=== PATIENT | male | born 1955 | race African-American/Black ===

== ENCOUNTER 2020-08-25 01:52 | Inpatient (IN) | payer MEDICARE ==
[2020-08-25] VITALS (7 sets, daily range): BP systolic 139–186; BP diastolic 73–92
[~2020-08-25] VITALS: Ht 165.1 cm; Wt 70.3 kg
--- NOTE | 2020-08-25 03:10 | NUR ---
Patient arrived to room 254 via EMS from [facility]. He is somnolent and drowsy and unable to follow commands but BUE and BLE are strong and wnl during incontinence care, he is incontinent of bowel upon arrival. VSS as documented, unable to perform NIH scale d/t drowsiness s/t IVP 2mg ativan given at [facility]. Will continue to monitor, sinus rhythm to sinus tachycardia on telemetry, oxygen wnl on room air. COVID rapid and PCR swabs perfrormed per RN handoff and [facility] ER report. Dr. Velasquez consulted at [facility] per ER report, will call his office in am to confirm consult and update MD.
[2020-08-25] MEDS ORDERED: 0.9 % SODIUM CHLORIDE 10 ML DISP.SYRIN. IV PRN (05:00)
[2020-08-25] MEDS ORDERED: IV NORMAL SALINE 1000ML BAG 1,000 ML IV SCH (05:30)
--- NOTE | 2020-08-25 05:52 | NUR ---
18F Antoine catheter placed under sterile technique, 750cc clear yellow urine returned.
[2020-08-25] MEDS ORDERED: ACETAMINOPHEN 325 MG TABLET. PO PRN (07:15)
[2020-08-25] MEDS: ASPIRIN ENTERIC COATED 325 MG TABLET.DR. PO SCH (08:00)
--- NOTE | 2020-08-25 09:14 | PDOC2 ---
NEUROLOGY CONSULT Date of Service DOS: DATE: 08/25/20 TIME: 09:13 Reason for Consult Reason for Consult: Stroke Referring Physician Referring Physician: Dr. Jones Source Source: Caregiver (brother), Chart review History of Present Illness History of Present Illness The patient is a 65-year-old right-handed male who had altered mental status. Sister spoke to the patient at 2 AM yesterday and he was fine, then the brother went to check on him at 5 PM yesterday and he was confused. Patient told the brother that he had fallen. He kept repeating himself. I spoke to Ms. Contreras in [place]'s ED and we agreed that he was not a candidate for alteplase. I recommended a CT angiogram, but he only had this of the head, not the neck. He did receive some Ativan just before transfer as he was getting somewhat agitated. According to the brother, there is no prior history of stroke, seizure, or head injury. Seizure does appear in his chart history Review of Systems: Review of Systems: Constitutional: Denies fever or chills Eyes: Denies change in visual acuity HENT: Denies nasal congestion or sore throat Respiratory: Denies cough or shortness of breath Cardiovascular: Denies chest pain or edema GI: Denies abdominal pain, nausea, vomiting, bloody stools or diarrhea : Denies dysuria Musculoskeletal: Denies back pain or joint pain Integument: Denies rash Neurologic: Denies headache, focal weakness or sensory changes Endocrine: Denies polyuria or polydipsia Lymphatic: Denies swollen glands Psychiatric: Denies depression or anxiety (TIMI CONTRERAS APRN) Physical Exam: PE: Constitutional: Well developed, well nourished, no acute distress, non-toxic appearance. [] HENT: Normocephalic, atraumatic, bilateral external ears normal, oropharynx moist, no oral exudates, nose normal. [] Eyes: PERRLA, EOMI, conjunctiva normal, no discharge. [] Neck: Normal range of motion, no tenderness, supple, no stridor. [] Cardiovascular:Heart rate regular rhythm, no murmur [] Lungs & Thorax: Bilateral breath sounds clear to auscultation [] Abdomen: Bowel sounds normal, soft, no tenderness, no masses, no pulsatile masses. [] Skin: Warm, dry, no erythema, no rash. [] Back: No tenderness, no CVA tenderness. [] Extremities: No tenderness, no cyanosis, no clubbing, ROM intact, no edema. [] Neurologic: Alert and oriented X 1, normal motor function, normal sensory function, fixed gaze to right Psychologic: restless (TIMI CONTRERAS APRN) Current Patient Data: Labs: Laboratory Tests Test 08/24/20 18:33 Glucose (Fingerstick) 474 mg/dL (70-99) H Vital Signs: Vital Signs Date Time Temp Pulse Resp B/P (MAP) Pulse Ox O2 Delivery O2 Flow Rate FiO2 08/24/20 18:34 99 28 196/106 (136) 99 (ITMI CONTRERAS APRN) EKG: EKG: [] (TIMI CONTRERAS APRN) Radiology/Procedures: Radiology/Procedures: []STUDY: CT head without contrast INDICATION: Rightward gaze preference. Altered mental status. Code stroke. COMPARISON: None. TECHNIQUE: Axial CT imaging through the head without the use of intravenous contrast. Sagittal and coronal reformats were obtained. One or more of the following individualized dose reduction techniques were utilized for this examination: 1. Automated exposure control 2. Adjustment of the mA and/or kV according to patient size 3. Use of iterative reconstruction technique. FINDINGS: No acute intracranial hemorrhage. No definitive CT findings of an acute cortical infarction. Note is made of a rightward gaze preference. No localized mass effect or midline shift. No hydrocephalus. Intact calvarium. IMPRESSION: 1. No acute intracranial hemorrhage or CT evidence for an acute cortical infarction. 2. Nonspecific rightward gaze preference. * EXAM: Chest, single view. HISTORY: Altered mental status. COMPARISON: None. FINDINGS: A frontal view of the chest is obtained. There is no infiltrate, pleural effusion or pneumothorax. There is suspected bilateral infrahilar atelectasis. IMPRESSION: No acute pulmonary finding. Electronically signed by: Jillian Griffith MD (08/24/2020 6:58 PM) [facility] Study: CT cervical spine without contrast INDICATION: Code stroke. Possible fall. Altered mental status. COMPARISON: None. TECHNIQUE: Axial CT imaging of the cervical spine performed without intravenous contrast. Sagittal and coronal reformats were obtained. One or more of the following individualized dose reduction techniques were utilized for this examination: 1. Automated exposure control 2. Adjustment of the mA and/or kV according to patient size 3. Use of iterative reconstruction technique. 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 Chronic anterior angulation of the dens. Widened atlantodental interval but unlikely traumatic and instead related to the craniocervical anatomy. No acute fracture is identified or traumatic malalignment. Multilevel discogenic arthrosis, uncovertebral joint hypertrophy and facet degeneration. Multilevel osseous neural foraminal encroachment ranging from mild to severe. Central canal stenosis favored greatest at C3-C4 the extent of which is not fully characterize. No soft tissue sequela of trauma seen throughout the neck. Retropharyngeal course of both internal carotid arteries. IMPRESSION: 1. No acute fracture is identified throughout the cervical spine. 2. Multilevel degenerative changes osseous neural foraminal encroachment at all cervical levels ranging from mild to severe. 3. Variant anatomy with atlantooccipital assimilation, a hypoplastic clivus and basilar invagination. Electronically signed by: VICK CHAWLA MD (08/24/2020 7:10 PM) [facility] (TIMI CONTRERAS APRN) Radiology/Procedures: [address] [address] IMAGING REPORT Signed PATIENT: ANUJ CATHERINE ACCOUNT: [id number] : 1955 LOCATION: ER AGE: 65 SEX: M EXAM STATUS: REG ER ORD. PHYSICIAN: EMERGENCY,DEPARTMENT REASON: GAZE TO RIGHT, CODE STROKE, AMS PROCEDURE: CT CODE STROKE HEAD WO STUDY: CT head without contrast INDICATION: Rightward gaze preference. Altered mental status. Code stroke. COMPARISON: None. TECHNIQUE: Axial CT imaging through the head without the use of intravenous contrast. Sagittal and coronal reformats were obtained. One or more of the following individualized dose reduction techniques were utilized for this examination: 1. Automated exposure control 2. Adjustment of the mA and/or kV according to patient size 3. Use of iterative reconstruction technique. FINDINGS: No acute intracranial hemorrhage. No definitive CT findings of an acute cortical infarction. Note is made of a rightward gaze preference. No localized mass effect or midline shift. No hydrocephalus. Intact calvarium. IMPRESSION: 1. No acute intracranial hemorrhage or CT evidence for an acute cortical infarction. 2. Nonspecific rightward gaze preference. FOR INTERNAL CODING PURPOSES Critical result: Findings discussed with the care team on 08/24/2020 at 6:58 PM. RESULT CODE: (C) Electronically signed by: VICK CHAWLA MD (08/24/2020 7:00 PM) [facility] DICTATED AND SIGNED BY: VICK CHAWLA MD DATE: 08/24/201853 CC: EMERGENCY,DEPARTMENT; PCP,NO ~MTH0 [address] [address] IMAGING REPORT Signed PATIENT: ANUJ CATHERINE ACCOUNT: [id number] : 1955 LOCATION: ER AGE: 65 SEX: M EXAM STATUS: REG ER ORD. PHYSICIAN: TIMI CONTRERAS APRN REASON: AMS PROCEDURE: CHEST AP ONLY EXAM: Chest, single view. HISTORY: Altered mental status. COMPARISON: None. FINDINGS: A frontal view of the chest is obtained. There is no infiltrate, pleural effusion or pneumothorax. There is suspected bilateral infrahilar atelectasis. IMPRESSION: No acute pulmonary finding. Electronically signed by: Jillian Griffith MD (08/24/2020 6:58 PM) [facility] DICTATED AND SIGNED BY: JILLIAN GRIFFITH MD DATE: 08/24/20 [id number] CC: EMERGENCY,DEPARTMENT; TIMI CONTRERAS APRN; PCP,NO ~MTH0 [address] [place] [address] IMAGING REPORT Signed PATIENT: ANUJ CATHERINE ACCOUNT: [id number] : 1955 LOCATION: ER AGE: 65 SEX: M EXAM STATUS: REG ER ORD. PHYSICIAN: TIMI CONTRERAS APRN REASON: AMS,Right side deficit. Neurologist requested PROCEDURE: CT ANGIOGRAPHY HEAD EXAM: CTA HEAD DATE: 08/24/2020 9:00 PM INDICATION: AMS,Right side deficit. TECHNIQUE: CTA angiogram was obtained after IV bolus administration of 60 cc of Omnipaque 300. Multiplanar reconstruction images to include MIP and 3-D reconstruction images are submitted. One or more of the following dose reduction techniques were utilized: Automated exposure control (AEC), Adjustment of mA and/or kV according to patient size, Use of iterative reconstruction technique such as ASiR, CT scan done according to ALARA and image gently/image wisely COMPARISON: None. FINDINGS: The visualized distal internal carotid arteries, anterior and middle cerebral arteries are patent and normal caliber. Distal left vertebral artery is not well visualized. The distal right vertebral artery, basilar artery, and posterior cerebral arteries are patent and normal caliber. No aneurysm or arteriovenous malformation is seen. IMPRESSION: 1. No intracranial large vessel occlusion. 2. Distal left vertebral artery is not well visualized which could be due to hyp oplasia, stenosis, or occlusion. This could be further characterized with CTA or MRA of the neck, as clinically warranted. Electronically signed by: Arden Rodriguez MD (08/24/2020 10:19 PM) [facility] DICTATED AND SIGNED BY: ARDEN RODRIGUEZ MD DATE: 08/24/202212 CC: EMERGENCY,DEPARTMENT; TIMI CONTRERAS APRN; PCP,NO ~MTH0 0 (LAURITA MORALES MD) Heart Score: Risk Factors: Risk Factors: DM, Current or recent (<one month) smoker, HTN, HLP, family history of CAD, obesity. Risk Scores: Score 0 - 3: 2.5% MACE over next 6 weeks - Discharge Home Score 4 - 6: 20.3% MACE over next 6 weeks - Admit for Clinical Observation Score 7 - 10: 72.7% MACE over next 6 weeks - Early Invasive Strategies (TIMI CONTRERAS APRN) HEART Score for Chest Pain: HEART Score for Chest Pain Response (Comments) Value History Moderately Suspicious 1 ECG Nonspecific Repolarizatio 1 Age > 65 2 Risk Factors 1 or 2 Risk Factors 1 Troponin < Normal Limit 0 Total 5 Course & Med Decision Making: Course & Med Decision Making Pertinent Labs and Imaging studies reviewed. (See chart for details) Waiting for CTA results for decision to transfer. Consulted neurology and spoke with Ron (TIMI CONTRERAS APRN) Course & Med Decision Making See CERTIFIED CODING SPECIALIST Chart for details. Pt. presentation, testing and tx. plan discussed with Dr. Jones. Transfer to [facility] and consult to Dr. Carroll. Plan possible MRI of Head and Neck. Impression: 1. Acute Mental Status Change 2. Acute Rt side Deficits 3. Anemia Hgb 11.6 4. Elevated CK 2, 385-rhabdomyolysis? 5. Elevated D-dimer 2,31 6. DM 492 - 347 7. Dehydration 8. Possible history of seizure activity 9. Elevated AST 337 and ALT 79 10. Hx of Alcohol abuse (LAURITA MORALES MD) Dragon Disclaimer: Dragon Disclaimer: This electronic medical record was generated, in whole or in part, using a voice recognition dictation system. (TIMI CONTRERAS APRN) Departure Departure: Referrals: PCP,NO (PCP) Td Disclaimer This chart was dictated in whole or in part using Voice Recognition software in a busy, high-work load, and often noisy Emergency Department environment. It may contain unintended and wholly unrecognized errors or omissions. (LAURITA MORALES MD) Attending Signature Attending Signature I have participated in the care of this patient and I have reviewed and agree with all pertinent clinical information above including history, exam, and recommendations. (LAURITA MORALES MD) Past Medical History Cardiovascular: HTN CENTRAL NERVOUS SYSTEM: Seizure (?) GI: GERD Heme/Onc: Anemia NOS, Cancer (colon) Musculoskeletal: Osteoarthritis Endocrine: Diabetes Past Surgical History Past Surgical History: Colon Resection Family History Family History: Cancer Social History Social History Single, retired, no alcohol, tobacco, drugs Current Medications Current Medications Current Medications Sodium Chloride (Normal Saline Flush) 3 ml PRN DAILY PRN IV AFTER MEDS AND BLOOD DRAWS; Start 08/25/20 at 05:00 Sodium Chloride 1,000 ml @ 100 mls/hr Q10H IV Last administered on 08/25/20at 05:26; Start 08/25/20 at 05:30 Acetaminophen (Tylenol) 650 mg PRN Q6HRS PRN PO MILD PAIN / TEMP > 100.3'F; Start 08/25/20 at 07:15 Aspirin (Ecotrin) 325 mg DAILYWBKFT PO ; Start 08/25/20 at 08:00 Aspirin (Aspirin Rectal Supp) 300 mg PRN DAILY PRN WV IF UNABLE TO TAKE PO; Start 08/25/20 at 07:15 Allergies Allergies: Coded Allergies: No Known Drug Allergies (Unverified , 08/25/20) ROS Review of System Negative for fever, chills, weight loss, shortness of breath, chest pain, indigestion, hematochezia, melena, and dysuria. Full 14-point review of systems is negative. Physical Exam Physical Examination General: Well-developed, well-nourished black male in no acute distress HEENT: Normocephalic andatraumatic. Temporal arteriespulsatile and nontender Neck: Supple without bruit, no meningismus Musculoskeletal: Stability:see neurologic. Gait exam:see neurologic. Tone:see neurologic.Strength:see neurologic. Neurological: Mental Status:orientation, memory, attention span/concentration, language, fund of knowledge: Tells me his name, mostly nonsense speech. Cranial Nerves:Pupils equal and reactive to light. He keeps his eyes squeezed shut, there is a right gaze preference. Facial sensation is normal. There is no facial asymmetry. Vestibulo-ocular reflex is intact. Palate elevates and tongue protrudes in midline. All other cranial related problems are negative except as mentioned before.Reflexes:2+ and symmetric with flexor plantar responses. Motor:Moves left side less than right. Coordination: and gait:Not cooperative. Sensory:Responds to pinprick in all 4 extremities Vitals VITALS Vital Signs Date Time Temp Pulse Resp B/P (MAP) Pulse Ox O2 Delivery O2 Flow Rate FiO2 08/25/20 03:57 Room Air 08/25/20 02:00 98.7 108 19 148/73 (98) 96 98.7 Labs Labs Laboratory Tests Test 08/25/20 03:15 08/25/20 07:52 SARS-CoV-2 Antigen (Rapid) Negative (NEGATIVE) Glucose (Fingerstick) 238 mg/dL (70-99) Laboratory Tests Test 08/25/20 03:15 08/25/20 07:52 SARS-CoV-2 Antigen (Rapid) Negative (NEGATIVE) Glucose (Fingerstick) 238 mg/dL (70-99) Images Images CT head without contrast FINDINGS: No acute intracranial hemorrhage. No definitive CT findings of an acute cortical infarction. Note is made of a rightward gaze preference. No localized mass effect or midline shift. No hydrocephalus. Intact calvarium. IMPRESSION: 1. No acute intracranial hemorrhage or CT evidence for an acute cortical infarction. 2. Nonspecific rightward gaze preference. CTA HEAD DATE: 08/24/2020 9:00 PM INDICATION: AMS,Right side deficit. TECHNIQUE: CTA angiogram was obtained after IV bolus administration of 60 cc of Omnipaque 300. Multiplanar reconstruction images to include MIP and 3-D reconstruction images are submitted. One or more of the following dose reduction techniques were utilized: Automated exposure control (AEC), Adjustment of mA and/or kV according to patient size, Use of iterative reconstruction technique such as ASiR, CT scan done according to ALARA and image gently/image wisely COMPARISON: None. FINDINGS: The visualized distal internal carotid arteries, anterior and middle cerebral arteries are patent and normal caliber. Distal left vertebral artery is not well visualized. The distal right vertebral artery, basilar artery, and posterior cerebral arteries are patent and normal caliber. No aneurysm or arteriovenous malformation is seen. IMPRESSION: 1. No intracranial large vessel occlusion. 2. Distal left vertebral artery is not well visualized which could be due to hypoplasia, stenosis, or occlusion. This could be further characterized with CTA or MRA of the neck, as clinically warranted. CT cervical spine without contrast INDICATION: Code stroke. Possible fall. Altered mental status. COMPARISON: None. TECHNIQUE: Axial CT imaging of the cervical spine performed without intravenous contrast. Sagittal and coronal reformats were obtained. One or more of the following individualized dose reduction techniques were utilized for this examination: 1. Automated exposure control 2. Adjustment of the mA and/or kV according to patient size 3. Use of iterative reconstruction technique. 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 Chronic anterior angulation of the dens. Widened atlantodental interval but unlikely traumatic and instead related to the craniocervical anatomy. No acute fracture is identified or traumatic malalignment. Multilevel discogenic arthrosis, uncovertebral joint hypertrophy and facet degeneration. Multilevel osseous neural foraminal encroachment ranging from mild to severe. Central canal stenosis favored greatest at C3-C4 the extent of which is not fully characterize. No soft tissue sequela of trauma seen throughout the neck. Retropharyngeal course of both internal carotid arteries. IMPRESSION: 1. No acute fracture is identified throughout the cervical spine. 2. Multilevel degenerative changes osseous neural foraminal encroachment at all cervical levels ranging from mild to severe. 3. Variant anatomy with atlantooccipital assimilation, a hypoplastic clivus and basilar invagination. Assessment/Plan Assessment/Plan Impression: Clinically a right hemispheric stroke with gaze preference, confusion, left-side d weakness, consider also metabolic issues Under investigation for Covid History of hypertension, diabetes, colon cancer Recommendations: MRI of the brain They only did CT angiogram of the head last night, I will check CT angiogram of the neck Echocardiogram Rehabilitation modalities Aspirin Also see stroke orders Fully discussed with the patient's brother. Thank you for letting me help with the patient's care. ALYSHA CARROLL MD Aug 25, 2020 09:14
[2020-08-25 09:37] LABS: BASO % 0 % (0-3); EOS % 0 % (0-3); HEMATOCRIT 29.9 % (39.0-53.0); LYMPH # 0.8 x10^3/uL (1.0-4.8); LYMPH % 11 % (24-48); MEAN CORPUSCULAR HEMOGLOBIN 25 pg (25-35); MEAN CORPUSCULAR HGB CONC 34 g/dL (31-37); MEAN CORPUSCULAR VOLUME 74 fL (79-100); MONO # 0.6 x10^3/uL (0.0-1.1); MONO % 8 % (0-9); NEUT # 6.3 x10^3/uL (1.8-7.7); NEUT % 81 % (31-73); PLATELET COUNT 196 x10^3/uL (140-400); RED BLOOD COUNT 4.03 x10^6/uL (4.30-5.70); RED CELL DISTRIBUTION WIDTH 13.8 % (11.5-14.5); WHITE BLOOD COUNT 7.8 x10^3/uL (4.0-11.0)
[2020-08-25 10:06] LABS: ALBUMIN 2.3 g/dL (3.4-5.0); ALBUMIN/GLOBULIN RATIO 0.8 (1.0-1.7); CALCIUM 8.7 mg/dL (8.5-10.1); CREATININE 1.1 mg/dL (0.7-1.3); GFR 81.3; POTASSIUM 3.4 mmol/L (3.5-5.1); TOTAL BILIRUBIN 0.4 mg/dL (0.2-1.0); TOTAL PROTEIN 5.2 g/dL (6.4-8.2)
[2020-08-25] MEDS: ASPIRIN RECTAL 300 MG SUPP. PR PRN (10:07)
[2020-08-25] MEDS ORDERED: IOHEXOL 350 MG/ML 100 ML VIAL. IV ONE (10:30)
[2020-08-25] MEDS: ACETAMINOPHEN 650 MG SUPP.RECT. PR PRN ×3 (10:42→19:56)
[2020-08-25] MEDS ORDERED: DEXTROSE 50% 25 GM / 50ML DISP.SYRIN. IV PRN ×2 (10:45→11:30)
[2020-08-25 10:46] LABS: CHOLESTEROL/HDL RATIO 2.6
[2020-08-25] MEDS: POTASSIUM CL 20MEQ IN D5W 1,000 ML IV SCH (12:07)
[2020-08-25] MEDS: INSULIN LISPRO 300 UNITS/3 ML VIAL. SQ SCH ×3 (12:08→22:09)
[2020-08-25] MEDS ORDERED: TAMS0.4C97 PO (12:12)
[2020-08-25] MEDS ORDERED: LISI10TA2 PO (12:12)
[2020-08-25] MEDS ORDERED: NPH,100V5 SQ (12:12)
[2020-08-25] MEDS ORDERED: FERR325T14 PO (12:12)
[2020-08-25] MEDS ORDERED: ATOR10TA PO (12:12)
[2020-08-25] MEDS ORDERED: OMEP40CA45 PO (12:12)
--- NOTE | 2020-08-25 12:22 | NUR ---
SS following for discharge planning. SS reviewed pt chart and discussed with pt RN. Pt is from home and is currently on room air. COVID19 negative. Neurology following. Possible stroke. Pt having fever. Self pay. SS will continue to follow for discharge planning.
--- NOTE | 2020-08-25 13:13 | RAD ---
Examination: CTA NECK History: Reason: CVA, had CTA only of head at [facility], abnormal vertebral / Spl. Instructions: omn i 350 75ml / Comparison/Correlation: CTA head with contrast 08/24/2020 TECHNIQUE: Computed tomographic angiography of the head and neck was performed following IV contrast according to arteriography protocol. Three-dimensional reconstructions were also performed. Maximum i ntensity projection images were provided. Findings: There is significant motion on multiple images especially of the head limiting assessment. Assessment of intracerebral arterial vasculature is severely limited and nondiagnostic due to motion present. Motion also limits evaluation of the internal carotid arteries at the upper cervical spine level and more superiorly. Note is made of significantly medial course of both of the common carotid arteries a nd internal carotid arteries. The vertebral arteries arise from the subclavian arteries bilaterally. Left vertebral artery is very diminutive in size. Right vertebral artery appears to be patent in its proximal visualized aspect. Mo re distally, motion limits evaluation. Assessment of the patency of the left vertebral artery is nond iagnostic due to its diminutive size and motion present. Contrast is seen within the vertebral arteri es. Aortic arch vessels are unremarkable at the origins with no significant stenoses seen. Mild C3-4 disc space narrowing with concentric disc bulge noted. Degenerative disc space narrowing of the lower cervical spine also seen. Patient is edentulous Impression: Significantly limited exam due to motion especially at the level of the head and upper cervical spine . No sylvian stenosis is identified involving the carotid arteries. No definite stenosis involving lo wer cervical portions of the internal carotid arteries. No significant plaque seen. Consider repeat e xam when able if clinical concern persists. TECHNIQUE: Computed tomographic angiography of the head and neck was performed following IV contrast according to arteriography protocol. Three-dimensional reconstructions were also performed. Maximum i ntensity projection images were provided. PQRS Compliance Statement - Stenosis calculations for CT, MR and conventional angiography are based u lianna measurement of the distal ICA diameter in accordance with the NASCET methodology. Stenosis calcu lations for carotid ultrasound studies are derived from validated velocity criteria which are known t o correlate with the NASCET methodology. Electronically signed by: Jass Polanco MD (08/25/2020 1:11 PM) [id number]
--- NOTE | 2020-08-25 13:57 | HP ---
ADMIT DATE: 08/25/2020 HISTORY OF PRESENT ILLNESS: The patient is a 65-year-old -[place] male patient who apparently was brought to the Emergency Room of [facility] with altered mental status. His sister spoke to him at 2:00 p.m. and he appeared fine. His brother went to check on him at 5:00 p.m. on the day of arrival to the Emergency Room and he was acting confused. The patient told his brother when he arrived that he fell and hit his head and that he had not eaten or had anything to drink. When he arrived, he was repeating himself asking the staff at the Emergency Room to call his doctor and get his medication. He was extensively investigated. On arrival, the patient was alert and oriented x 1 with normal motor and normal sensory function. He has a fixed gaze to the right. He has had a CT scan of the head without contrast which basically showed no acute intracranial hemorrhage, no definite CT findings of an acute cortical infarction. A note was made of a rightward gaze preference; however, there is no localized mass effect or midline shift, no hydrocephalus. His chest x-ray showed no acute pulmonary finding. CT scan of the cervical spine without contrast showed no acute fracture identified throughout the cervical spine. He has multilevel degenerative changes with osseous changes, osseous neural foramina, encroachment at all cervical levels ranging from mild to severe and variant anatomy with atlanto-occipital assimilation, hypoplastic clivus and basilar invagination. Given that he had altered mental status, the patient was transferred to [facility] for further evaluation with an MRI and to consult the neurologist. PAST MEDICAL HISTORY: The patient unfortunately is confused and does not give any useful information. His past medical history is significant for: 1. Type 2 diabetes. 2. Gastroesophageal reflux disease. 3. Hypertension. 4. Anemia. 5. Osteoarthritis. 6. Seizure disorder. 7. Has had colon cancer. PAST SURGICAL HISTORY: Significant for surgery for colon cancer. ALLERGIES: He has no known drug allergies. MEDICATIONS: Unfortunately, the patient does not give any useful information and I will contact his family to get the medication list that he is on. FAMILY HISTORY: Unobtainable. SOCIAL HISTORY: Unobtainable. REVIEW OF SYSTEMS: Unobtainable. PHYSICAL EXAMINATION: GENERAL: He apparently was alert, oriented x 1 with normal motor function, normal sensory function with a fixed gaze to the right. On examining him, there was no pallor, jaundice, cyanosis or thyromegaly. No jugular venous distention. No lower limb edema. VITAL SIGNS: His heart rate was 99, blood pressure was 196/106, his temperature was 97.4, respiratory rate was 28 and oxygen saturation was 99%. HEAD, EYES, EARS, NOSE AND THROAT: Showed normocephalic, atraumatic. NECK: Supple. HEART: Showed normal first and second heart sounds. No gallop, rub or murmur. CHEST: Clear to auscultation. No crepitation or rhonchi. ABDOMEN: Distended, soft, nontender. No guarding or rigidity. No organomegaly. All hernial orifice intact. Bowel sounds normal. NEUROLOGIC: He was apparently unresponsive. He has multiple other findings, right sided deficit, anemia, elevated CK or possible rhabdomyolysis, elevated D-dimer, dehydration, possible history of seizure activity, history of alcohol abuse and was transferred to [facility] to consult the neurologist and arrange for an MRI. His lab work there showed that his white cell count was 9100, hemoglobin 11.6, hematocrit 36, MCV 76 and platelet count ____. His chemistry showed a serum sodium 140, potassium 4, chloride 103, bicarbonate 27, anion gap of 10, BUN 27, creatinine 1.5, estimated GFR was 56 mL per minute. His glucose was ____. Lactic acid was 2.5. His calcium was 9.9. His CK was 2389 and his beta natriuretic peptide was only 384. His prothrombin time was 9.4, INR of 0.9, aPTT was 21 and D-dimer was 2.31. Urinalysis was essentially unremarkable and urine drug screen was negative. His CT scan of the cervical spine showed no acute fracture identified throughout the cervical spine. He had multilevel degenerative changes, osseous and neural foraminal encroachment at all cervical levels ranging from mild to severe. He has variant anatomy with atlanto-occipital assimilation, hypoplastic clivus and basilar invagination. CT scan of the head showed no acute intracranial hemorrhage or CT evidence of an acute cortical infarction, nonspecific rightward gaze preference. His chest x-ray was unremarkable and showed no acute pulmonary finding. CT angio of the head showed no intracranial large vessel occlusion. Distal left vertebral artery is not well visualized which could be due to hypoplasia, stenosis or occlusion. This could be further characterized with CTA or MRA of the neck as clinically warranted. ASSESSMENT AND PLAN: The patient was transferred to [facility]. He was kept n.p.o., started on IV fluids and given aspirin per rectum. We did consult Dr. Pardo for evaluation and management. CRISTINA REYNA MD DR: YUN/yaima JOB#: [id number] / [id number]
--- NOTE | 2020-08-25 15:00 | RAD ---
MRI of the brain without contrast 08/25/2020 Clinical History: Right-sided deficit. CVA. Technique: Unenhanced T1-weighted sagittal and axial, T2-weighted axial and coronal and FLAIR, gradie nt echo and diffusion-weighted axial images of the brain were obtained. Findings: Comparison is made to the patient's CT scan of the head dated 08/24/2020. Images from the study are degraded by patient motion. There is generalized parenchymal atrophy. Patchy and several small focal areas of increased signal in tensity are seen within the periventricular and subcortical white matter of both cerebral hemispheres on the FLAIR and T2-weighted images consistent with areas of mild small vessel ischemic disease. No acute parenchymal abnormality is seen. No extra-axial fluid collection is seen. There is no MRI ev idence of acute ischemia/infarction. Mild mucosal thickening in seen scattered throughout the paranasal sinuses. There are small bilateral mastoid effusions. Normal flow voids are seen within the major vascular structures surrounding the b rain parenchyma. Impression: No acute parenchymal abnormality is seen. Electronically signed by: Sean Alvarez MD (08/25/2020 2:58 PM) [id number]
--- NOTE | 2020-08-25 15:43 | RAD ---
EXAM: Chest, single view. HISTORY: Fever. Aspiration pneumonitis. COMPARISON: None. FINDINGS: A frontal view of the chest is obtained. There is no infiltrate, pleural effusion or pneumo thorax. The heart is normal in size for portable technique. There is a prominent right paratracheal s tripe due to tortuous arch great vessels and prominent right paratracheal lymph nodes demonstrated on the CT angiogram of the neck performed on the same date. IMPRESSION: No acute pulmonary finding. Electronically signed by: Jillian See MD (08/25/2020 3:40 PM) [facility]
[2020-08-26] MEDS: POTASSIUM CL 20MEQ IN D5W 1,000 ML IV SCH ×2 (01:38→15:43)
[2020-08-26 03:00] VITALS: BP 187/92
[2020-08-26] MEDS: INSULIN LISPRO 300 UNITS/3 ML VIAL. SQ SCH (06:46)
[2020-08-26 07:00] VITALS: BP 164/75
[2020-08-26 07:42] LABS: HEMATOCRIT 33.7 % (39.0-53.0); RED BLOOD COUNT 4.42 x10^6/uL (4.30-5.70); RED CELL DISTRIBUTION WIDTH 14.6 % (11.5-14.5); WHITE BLOOD COUNT 7.5 x10^3/uL (4.0-11.0)
[2020-08-26] MEDS: ASPIRIN ENTERIC COATED 325 MG TABLET.DR. PO SCH (08:00)
[2020-08-26 08:01] LABS: ALBUMIN 2.1 g/dL (3.4-5.0); ALBUMIN/GLOBULIN RATIO 0.7 (1.0-1.7); CALCIUM 8.7 mg/dL (8.5-10.1); CREATININE 1.3 mg/dL (0.7-1.3); POTASSIUM 3.7 mmol/L (3.5-5.1); TOTAL BILIRUBIN 0.6 mg/dL (0.2-1.0); TOTAL PROTEIN 5.3 g/dL (6.4-8.2)
[2020-08-26] MEDS ORDERED: DEXTROSE 50% 25 GM / 50ML DISP.SYRIN. IV PRN (09:15)
[2020-08-26 11:00] VITALS: BP 187/87
[2020-08-26] MEDS: ASPIRIN RECTAL 300 MG SUPP. PR PRN (11:46)
--- NOTE | 2020-08-26 13:43 | PDOC ---
PROGRESS NOTES Date of Service DATE: 08/26/20 TIME: 13:40 Assessment Clinically a right hemispheric stroke with gaze preference, confusion, left- sided weakness, but all this has resolved, MRI is negative, then he developed a high fever. This this may all of been metabolic Under investigation for Covid History of hypertension, diabetes, colon cancer Plan Awaiting echocardiogram Awaits speech therapy evaluation before we can feed Rehabilitation modalities Aspirin Treat medical diseases including infection, Covid testing pending Subjective Wants to eat Objective Vital Signs Date Time Temp Pulse Resp B/P (MAP) Pulse Ox O2 Delivery O2 Flow Rate FiO2 08/26/20 11:00 99.1 86 20 187/87 (120) 99 Room Air 99.1 Intake and Output 08/26/20 07:00 Intake Total 0 ml Output Total 1400 ml Balance -1400 ml Intake Oral 0 ml Output Urine Total 1400 ml PHYSICAL EXAM Alert. Oriented to place and person. PERRL. EOMI. CN: no focal findings. Muscle tone: normal. Muscle strength: 4/5 DTR: 2+ Plantar reflex: Flexor Gait: not examined in bed. Sensory exam: no abnormal findings. Review of Relevant I have reviewed the following items danielle (where applicable) has been applied. Labs Laboratory Tests Test 08/25/20 03:15 08/25/20 07:52 08/25/20 09:15 08/25/20 11:07 SARS-CoV-2 Antigen (Rapid) Negative (NEGATIVE) Glucose (Fingerstick) 238 mg/dL (70-99) 263 mg/dL (70-99) White Blood Count 7.8 x10^3/uL (4.0-11.0) Red Blood Count 4.03 x10^6/uL (4.30-5.70) Hemoglobin 10.0 g/dL (13.0-17.5) Hematocrit 29.9 % (39.0-53.0) Mean Corpuscular Volume 74 fL (79-100) Mean Corpuscular Hemoglobin 25 pg (25-35) Mean Corpuscular Hemoglobin Concent 34 g/dL (31-37) Red Cell Distribution Width 13.8 % (11.5-14.5) Platelet Count 196 x10^3/uL (140-400) Neutrophils (%) (Auto) 81 % (31-73) Lymphocytes (%) (Auto) 11 % (24-48) Monocytes (%) (Auto) 8 % (0-9) Eosinophils (%) (Auto) 0 % (0-3) Basophils (%) (Auto) 0 % (0-3) Neutrophils # (Auto) 6.3 x10^3/uL (1.8-7.7) Lymphocytes # (Auto) 0.8 x10^3/uL (1.0-4.8) Monocytes # (Auto) 0.6 x10^3/uL (0.0-1.1) Eosinophils # (Auto) 0.0 x10^3/uL (0.0-0.7) Basophils # (Auto) 0.0 x10^3/uL (0.0-0.2) Sodium Level 148 mmol/L (136-145) Potassium Level 3.4 mmol/L (3.5-5.1) Chloride Level 110 mmol/L (98-107) Carbon Dioxide Level 27 mmol/L (21-32) Anion Gap 11 (6-14) Blood Urea Nitrogen 22 mg/dL (8-26) Creatinine 1.1 mg/dL (0.7-1.3) Estimated GFR (Cockcroft-Gault) 81.3 BUN/Creatinine Ratio 20 (6-20) Glucose Level 231 mg/dL (70-99) Calcium Level 8.7 mg/dL (8.5-10.1) Total Bilirubin 0.4 mg/dL (0.2-1.0) Aspartate Amino Transf (AST/SGOT) 54 U/L (15-37) Alanine Aminotransferase (ALT/SGPT) 43 U/L (16-63) Alkaline Phosphatase 109 U/L (46-116) Ammonia 17 mcmol/L (11-34) Creatine Kinase 1796 U/L (39-308) Total Protein 5.2 g/dL (6.4-8.2) Albumin 2.3 g/dL (3.4-5.0) Albumin/Globulin Ratio 0.8 (1.0-1.7) Triglycerides Level 87 mg/dL (0-150) Cholesterol Level 126 mg/dL (0-200) LDL Cholesterol, Calculated 61 mg/dL (0-100) VLDL Cholesterol, Calculated 17 mg/dL (0-40) Non-HDL Cholesterol Calculated 78 mg/dL (0-129) HDL Cholesterol 48 mg/dL (40-60) Cholesterol/HDL Ratio 2.6 Test 08/25/20 16:34 08/25/20 21:15 08/26/20 06:43 08/26/20 07:23 Glucose (Fingerstick) 111 mg/dL (70-99) 225 mg/dL (70-99) 326 mg/dL (70-99) White Blood Count 7.5 x10^3/uL (4.0-11.0) Red Blood Count 4.42 x10^6/uL (4.30-5.70) Hemoglobin 11.0 g/dL (13.0-17.5) Hematocrit 33.7 % (39.0-53.0) Mean Corpuscular Volume 76 fL (79-100) Mean Corpuscular Hemoglobin 25 pg (25-35) Mean Corpuscular Hemoglobin Concent 33 g/dL (31-37) Red Cell Distribution Width 14.6 % (11.5-14.5) Platelet Count 185 x10^3/uL (140-400) Sodium Level 145 mmol/L (136-145) Potassium Level 3.7 mmol/L (3.5-5.1) Chloride Level 107 mmol/L (98-107) Carbon Dioxide Level 23 mmol/L (21-32) Anion Gap 15 (6-14) Blood Urea Nitrogen 25 mg/dL (8-26) Creatinine 1.3 mg/dL (0.7-1.3) Estimated GFR (Cockcroft-Gault) 67.0 BUN/Creatinine Ratio 19 (6-20) Glucose Level 309 mg/dL (70-99) Calcium Level 8.7 mg/dL (8.5-10.1) Total Bilirubin 0.6 mg/dL (0.2-1.0) Aspartate Amino Transf (AST/SGOT) 44 U/L (15-37) Alanine Aminotransferase (ALT/SGPT) 44 U/L (16-63) Alkaline Phosphatase 104 U/L (46-116) Total Protein 5.3 g/dL (6.4-8.2) Albumin 2.1 g/dL (3.4-5.0) Albumin/Globulin Ratio 0.7 (1.0-1.7) Laboratory Tests Test 08/25/20 16:34 08/25/20 21:15 08/26/20 06:43 08/26/20 07:23 Glucose (Fingerstick) 111 mg/dL (70-99) 225 mg/dL (70-99) 326 mg/dL (70-99) White Blood Count 7.5 x10^3/uL (4.0-11.0) Red Blood Count 4.42 x10^6/uL (4.30-5.70) Hemoglobin 11.0 g/dL (13.0-17.5) Hematocrit 33.7 % (39.0-53.0) Mean Corpuscular Volume 76 fL (79-100) Mean Corpuscular Hemoglobin 25 pg (25-35) Mean Corpuscular Hemoglobin Concent 33 g/dL (31-37) Red Cell Distribution Width 14.6 % (11.5-14.5) Platelet Count 185 x10^3/uL (140-400) Sodium Level 145 mmol/L (136-145) Potassium Level 3.7 mmol/L (3.5-5.1) Chloride Level 107 mmol/L (98-107) Carbon Dioxide Level 23 mmol/L (21-32) Anion Gap 15 (6-14) Blood Urea Nitrogen 25 mg/dL (8-26) Creatinine 1.3 mg/dL (0.7-1.3) Estimated GFR (Cockcroft-Gault) 67.0 BUN/Creatinine Ratio 19 (6-20) Glucose Level 309 mg/dL (70-99) Calcium Level 8.7 mg/dL (8.5-10.1) Total Bilirubin 0.6 mg/dL (0.2-1.0) Aspartate Amino Transf (AST/SGOT) 44 U/L (15-37) Alanine Aminotransferase (ALT/SGPT) 44 U/L (16-63) Alkaline Phosphatase 104 U/L (46-116) Total Protein 5.3 g/dL (6.4-8.2) Albumin 2.1 g/dL (3.4-5.0) Albumin/Globulin Ratio 0.7 (1.0-1.7) Medications Current Medications Sodium Chloride (Normal Saline Flush) 3 ml PRN DAILY PRN IV AFTER MEDS AND BLOOD DRAWS; Start 08/25/20 at 05:00 Sodium Chloride 1,000 ml @ 100 mls/hr Q10H IV Last administered on 08/25/20at 05:26; Start 08/25/20 at 05:30; Stop 08/25/20 at 11:23; Status DC Acetaminophen (Tylenol) 650 mg PRN Q6HRS PRN PO MILD PAIN / TEMP > 100.3'F; Start 08/25/20 at 07:15 Aspirin (Ecotrin) 325 mg DAILYWBKFT PO ; Start 08/25/20 at 08:00 Aspirin (Aspirin Rectal Supp) 300 mg PRN DAILY PRN [place] IF UNABLE TO TAKE PO Last administered on 08/26/20at 11:46; Start 08/25/20 at 07:15 Iohexol (Omnipaque 350 Mg/ml) 75 ml 1X ONCE IV Last administered on 08/25/20at 10:30; Start 08/25/20 at 10:30; Stop 08/25/20 at 10:34; Status DC Acetaminophen (Tylenol Supp) 650 mg PRN Q6HRS PRN [place] MILD PAIN / TEMP > 100.3'F Last administered on 08/25/20at 16:26; Start 08/25/20 at 10:30; Stop 08/25/20 at 19:48; Status DC Dextrose (Dextrose 50%-Water Syringe) 12.5 gm PRN Q15MIN PRN IV SEE COMMENTS; Start 08/25/20 at 10:45; Stop 08/25/20 at 11:26; Status DC Potassium Chloride/Dextrose 1,000 ml @ 75 mls/hr [id number] IV Last administered on 08/26/20at 01:38; Start 08/25/20 at 11:30 Insulin Human Lispro (HumaLOG) 0-7 UNITS Q6H SQ Last administered on 08/26/20at 06:46; Start 08/25/20 at 11:30; Stop 08/26/20 at 09:18; Status DC Dextrose (Dextrose 50%-Water Syringe) 12.5 gm PRN Q15MIN PRN IV SEE COMMENTS; Start 08/25/20 at 11:30 Acetaminophen (Tylenol Supp) 650 mg PRN Q4HRS PRN [place] MILD PAIN / TEMP > 100.3'F Last administered on 08/25/20at 19:56; Start 08/25/20 at 20:00 Insulin Human Lispro (HumaLOG) 0-9 UNITS Q6H PRN SQ hyperglycemia; Start 08/26/20 at 09:15 Dextrose (Dextrose 50%-Water Syringe) 12.5 gm PRN Q15MIN PRN IV SEE COMMENTS; Start 08/26/20 at 09:15 Active Scripts Active Reported Lipitor (Atorvastatin Calcium) 10 Mg Tablet 1 Tab PO DAILY Flomax (Tamsulosin Hcl) 0.4 Mg Cap.er.24h 1 Cap PO DAILY Ferrous Sulfate 325 Mg Tablet 1 Tab PO BID Omeprazole 40 Mg Capsule.dr 1 Cap PO DAILY Novolin N (Nph, Human Insulin Isophane) 100 Unit/1 Ml Vial 20 Unit SQ BIDACBD Lisinopril 10 Mg Tablet 1 Tab PO DAILY Vitals/I & O Vital Sign - Last 24 Hours 08/25/20 08/25/20 08/25/20 08/25/20 15:00 19:00 20:00 23:00 Temp 101.7 101.7 99.6 101.7 101.7 99.6 Pulse 114 109 101 Resp 26 23 22 B/P (MAP) 139/91 (107) 186/92 (123) 172/81 (111) Pulse Ox 94 96 96 O2 Delivery Room Air Room Air Room Air Room Air 08/26/20 08/26/20 08/26/20 08/26/20 03:00 07:00 08:00 11:00 Temp 98.8 98.4 99.1 98.8 98.4 99.1 Pulse 101 100 86 Resp 22 20 20 B/P (MAP) 187/92 (123) 164/75 (104) 187/87 (120) Pulse Ox 93 98 99 O2 Delivery Room Air Room Air Room Air Room Air Intake and Output 08/25/20 08/25/20 08/26/20 15:00 23:00 07:00 Intake Total 0 ml 0 ml 0 ml Output Total 950 ml 450 ml Balance 0 ml -950 ml -450 ml Images MRI of the brain without contrast 08/25/2020 Clinical History: Right-sided deficit. CVA. Technique: Unenhanced T1-weighted sagittal and axial, T2-weighted axial and coronal and FLAIR, gradient echo and diffusion-weighted axial images of the brain were obtained. Findings: Comparison is made to the patient's CT scan of the head dated 08/24/2020. Images from the study are degraded by patient motion. There is generalized parenchymal atrophy. Patchy and several small focal areas of increased signal intensity are seen within the periventricular and subcortical white matter of both cerebral hemispheres on the FLAIR and T2- weighted images consistent with areas of mild small vessel ischemic disease. No acute parenchymal abnormality is seen. No extra-axial fluid collection is seen. There is no MRI evidence of acute ischemia/infarction. Mild mucosal thickening in seen scattered throughout the paranasal sinuses. There are small bilateral mastoid effusions. Normal flow voids are seen within the major vascular structures surrounding the brain parenchyma. Impression: No acute parenchymal abnormality is seen. CTA NECK History: Reason: CVA, had CTA only of head at [facility], abnormal vertebral / Spl. Instructions: omni 350 75ml / Comparison/Correlation: CTA head with contrast 08/24/2020 TECHNIQUE: Computed tomographic angiography of the head and neck was performed following IV contrast according to arteriography protocol. Three-dimensional reconstructions were also performed. Maximum intensity projection images were provided. Findings: There is significant motion on multiple images especially of the head limiting assessment. Assessment of intracerebral arterial vasculature is severely limited and nondiagnostic due to motion present. Motion also limits evaluation of the internal carotid arteries at the upper cervical spine level and more superiorly. Note is made of significantly medial course of both of the common carotid arteries and internal carotid arteries. The vertebral arteries arise from the subclavian arteries bilaterally. Left vertebral artery is very diminutive in size. Right vertebral artery appears to be patent in its proximal visualized aspect. More distally, motion limits evaluation. Assessment of the patency of the left vertebral artery is nondiagnostic due to its diminutive size and motion present. Contrast is seen within the vertebral arteries. Aortic arch vessels are unremarkable at the origins with no significant stenoses seen. Mild C3-4 disc space narrowing with concentric disc bulge noted. Degenerative disc space narrowing of the lower cervical spine also seen. Patient is edentulous Impression: Significantly limited exam due to motion especially at the level of the head and upper cervical spine. No sylvian stenosis is identified involving the carotid arteries. No definite stenosis involving lower cervical portions of the internal carotid arteries. No significant plaque seen. Consider repeat exam when able if clinical concern persists. Justicifation of Admission Dx: Justifications for Admission: Justification of Admission Dx: N/A ALYSHA CARROLL MD Aug 26, 2020 13:43
--- NOTE | 2020-08-26 14:01 | PN ---
DATE: 08/26/2020 SUBJECTIVE: The patient is resting, slightly propped up in bed, in no apparent distress. He continued to be encephalopathic and unresponsive. He does open his eyes, does not track or follow command. He apparently has had an MRI of his brain, which basically showed that the patient has generalized parenchymal atrophy, patchy and several small focal areas of increased signal intensity are seen within the periventricular and subcortical white matter of both cerebral hemispheres, consistent area of mild small vessel ischemic disease, no acute parenchymal abnormality seen. No extraaxial fluid collection is seen. There is no MRI evidence of acute ischemia or infarction. There is mild mucosal thickening seen scattered throughout the paranasal sinuses, there are small bilateral mastoid effusion. Normal flow voids are seen within the major vascular structures surrounding the brain parenchyma. He did have CT angio of the neck, which ____ the impression, the significantly limited exam due to motion, especially at the level of the head and upper cervical spine. No Sylvian stenosis identified involving the carotid arteries. No definite stenosis involving the lower cervical portion of the internal carotid arteries. No significant plaque seen. Consider repeat exam when a ____ clinical concern persists. His chest x-ray basically showed no acute pulmonary finding. PHYSICAL EXAMINATION: GENERAL: When I examined him this morning, he was pale, no jaundice, cyanosis or thyromegaly. No jugular venous distention, no limb edema. VITAL SIGNS: His heart rate was 100, blood pressure was 164/75, temperature was 98.4, respiratory rate was 20, and oxygen saturation was 98% on room air. HEAD, EYES, EARS, NOSE AND THROAT: Normocephalic, atraumatic. NECK: Supple. CARDIAC: Normal first and second heart sounds. No gallop or murmur. CHEST: Clear to auscultation. No crepitation or rhonchi. ABDOMEN: Distended, soft, nontender. NEUROLOGIC: The patient continued to be encephalopathic. He does open his eyes and drifts back to sleep. He does not respond verbally. In fact, does not even move his extremities even to painful stimuli. His intake was incompletely recorded, output was 750. LABORATORY DATA: His lab work this morning showed that his white cell count is down to 7500, hemoglobin 11, hematocrit 33, MCV 76 and platelet count 185,000. His chemistry showed a serum sodium of 145, potassium 3.7, chloride 107, bicarbonate 23, anion gap of 15, BUN 25, creatinine 1.3, estimated GFR was 67 mL per minute. His glucose was 309, calcium was 8.7. Total bilirubin, ALT, alkaline phosphatase were normal. AST slightly elevated. Total protein was 5.3, albumin was 2.1. ASSESSMENT: 1. Altered mental status. The patient continued to be encephalopathic, although so far, all his CT scan and MRI and CT angio of the head and neck are all unrevealing. 2. His hypernatremia and hypokalemia has resolved. Other medical problems include: A. Type 2 diabetes mellitus with blood sugars that seems to be reasonably controlled. B. Gastroesophageal reflux disease. C. Hypertension. D. Microcytic hypochromic anemia. E. Osteoarthritis. F. Seizure disorder. G. The patient has had colon cancer. PLAN: To continue with IV fluid, continue with SCDs for DVT prophylaxis. Continue to monitor his blood sugar and adjust insulin as needed and the patient is not really making much improvement and we have to discus with the family the need for probably a gastrostomy tube placement and [facility]. CRISTINA REYNA MD DR: YUN/yaima JOB#: [id number] / [id number]
[2020-08-26 15:00] VITALS: BP 175/80
[2020-08-26] MEDS: INSULIN LISPRO 300 UNITS/3 ML VIAL. SQ PRN ×2 (17:18→23:21)
[2020-08-26 19:45] VITALS: BP 168/82
[2020-08-26] MEDS: ACETAMINOPHEN 650 MG SUPP.RECT. PR PRN (19:46)
[2020-08-26 23:19] VITALS: BP 168/76
[2020-08-27] MEDS: ACETAMINOPHEN 650 MG SUPP.RECT. PR PRN (03:10)
[2020-08-27 03:17] VITALS: BP 171/76
[2020-08-27] MEDS: POTASSIUM CL 20MEQ IN D5W 1,000 ML IV SCH ×2 (04:51→18:25)
[2020-08-27 07:00] VITALS: BP 177/86
[2020-08-27 07:13] LABS: HEMATOCRIT 30.9 % (39.0-53.0); HEMOGLOBIN 10.1 g/dL (13.0-17.5); RED BLOOD COUNT 4.03 x10^6/uL (4.30-5.70); RED CELL DISTRIBUTION WIDTH 14.3 % (11.5-14.5); WHITE BLOOD COUNT 6.2 x10^3/uL (4.0-11.0)
[2020-08-27 07:32] LABS: ALBUMIN 1.8 g/dL (3.4-5.0); ALBUMIN/GLOBULIN RATIO 0.6 (1.0-1.7); CREATININE 1.6 mg/dL (0.7-1.3); GFR 52.8; POTASSIUM 4.1 mmol/L (3.5-5.1); TOTAL BILIRUBIN 0.5 mg/dL (0.2-1.0); TOTAL PROTEIN 4.8 g/dL (6.4-8.2)
--- NOTE | 2020-08-27 09:02 | PN ---
DATE: 08/27/2020 SUBJECTIVE: The patient is resting flat, comfortably in bed, in no apparent respiratory distress. He is awake, alert, complaining that he is hungry and thirsty. He is moving all his limbs without difficulty. PHYSICAL EXAMINATION: GENERAL: When I examined him, he looked well and was clearly in no apparent respiratory distress, slightly pale, but no jaundice, cyanosis or thyromegaly. No jugular venous distention. No lower limb edema. VITAL SIGNS: His heart rate was 87, blood pressure was 171/76, temperature was 99.6, respiratory rate was 17 and oxygen saturation was 99%. HEAD, EYES, EARS, NOSE AND THROAT: Showed normocephalic, atraumatic. NECK: Supple. HEART: Normal first and second heart sounds. No gallop, rub or murmur. CHEST: Clear to auscultation. No crepitation or rhonchi. ABDOMEN: Scaphoid, soft, nontender. NEUROLOGIC: He is definitely more awake, alert, responding appropriately. All his cranial nerves are intact. He moves extremities without difficulty, although he does have some weakness in his right side. His intake over the last 24 hours incompletely recorded, output was 1400. LABORATORY DATA: As of this morning, his white cell count was 6200, hemoglobin 10, hematocrit 30, MCV 77 and platelet count of 170,000. His chemistry showed a serum sodium of 143, potassium 4.1, chloride 107, bicarbonate 27, anion gap of 9, BUN 24, creatinine 1.6, estimated GFR was 53 mL per minute. His glucose 301, calcium was 8. Total bilirubin, AST, ALT, alkaline phosphatase were normal. Total protein was 4.8, albumin was 1.8. His coronavirus PCR was not detectable. His urine culture was negative. His blood cultures also negative. ASSESSMENT: 1. Altered mental status has dramatically improved. The patient is now awake, alert, oriented to time, place and person. He is complaining that he is hungry and thirsty. 2. Hypernatremia and hypokalemia has resolved. His serum sodium this morning was 143 and potassium was 4.1. 3. Other medical problems include: A. Type 2 diabetes mellitus with blood sugar that is suboptimally controlled. B. Gastroesophageal reflux disease. C. Hypertension. D. Microcytic hypochromic anemia. E. Osteoarthritis. F. Seizure disorder. G. The patient has had colon cancer. H. The patient's creatinine has risen from 1.1-1.3 and this morning at 1.6 for no reason. The patient is not on any nephrotoxic medication to the best of my knowledge. PLAN: My plan is to continue with IV fluid. We will ask the speech therapy to evaluate and I will arrange for him to change his catheter and scan his bladder and if his creatinine continued to rise, we will arrange for CT scan of the abdomen and pelvis and consult neonatologist. CRISTINA REYNA MD DR: YUN/yaima JOB#: [id number] / [id number]
[2020-08-27] MEDS: INSULIN LISPRO 300 UNITS/3 ML VIAL. SQ PRN ×2 (09:18→17:44)
[2020-08-27] MEDS: ASPIRIN ENTERIC COATED 325 MG TABLET.DR. PO SCH (09:34)
[2020-08-27 10:55] VITALS: BP 135/61
--- NOTE | 2020-08-27 14:51 | PDOC ---
PROGRESS NOTES Date of Service DATE: 08/27/20 TIME: 14:47 Assessment Clinically a right hemispheric stroke with gaze preference, confusion, left- sided weakness, but all this has resolved, MRI is negative, then he developed a high fever. This this may all of been metabolic Covid negative History of hypertension, diabetes, colon cancer Dr. Jones lists a diagnosis of prior seizure, patient denies Fever earlier in the admission Hypernatremia and hypokalemia, elevated creatinine, type 2 diabetes mellitus, gastroesophageal reflux disease, hypertension, microcytic hypochromic anemia, osteoarthritis, history of colon cancer. Speech has not seen yesterday or today, I went ahead and did my own bedside swallow and find no dysphagia Plan Awaiting echocardiogram Diabetic diet Rehabilitation modalities Aspirin Treat medical diseases including infection, Covid testing pending Home as soon as tomorrow Subjective Still hungry and thirsty Objective Vital Signs Date Time Temp Pulse Resp B/P (MAP) Pulse Ox O2 Delivery O2 Flow Rate FiO2 08/27/20 10:55 98.0 84 20 135/61 (85) 98 Room Air 98.0 Intake and Output 08/27/20 07:00 Intake Total 0 ml Output Total 1300 ml Balance -1300 ml Intake Oral 0 ml Output Urine Total 1300 ml # Bowel Movements 3 PHYSICAL EXAM Alert. Oriented to place and person. PERRL. EOMI. CN: no focal findings. Muscle tone: normal. Muscle strength: 4/5 DTR: 2+ Plantar reflex: Flexor Gait: not examined in bed. Sensory exam: no abnormal findings. No sign of aspiration for me on liquids Review of Relevant I have reviewed the following items danielle (where applicable) has been applied. Labs Laboratory Tests Test 08/25/20 16:34 08/25/20 21:15 08/26/20 06:43 08/26/20 07:23 Glucose (Fingerstick) 111 mg/dL (70-99) 225 mg/dL (70-99) 326 mg/dL (70-99) White Blood Count 7.5 x10^3/uL (4.0-11.0) Red Blood Count 4.42 x10^6/uL (4.30-5.70) Hemoglobin 11.0 g/dL (13.0-17.5) Hematocrit 33.7 % (39.0-53.0) Mean Corpuscular Volume 76 fL (79-100) Mean Corpuscular Hemoglobin 25 pg (25-35) Mean Corpuscular Hemoglobin Concent 33 g/dL (31-37) Red Cell Distribution Width 14.6 % (11.5-14.5) Platelet Count 185 x10^3/uL (140-400) Sodium Level 145 mmol/L (136-145) Potassium Level 3.7 mmol/L (3.5-5.1) Chloride Level 107 mmol/L (98-107) Carbon Dioxide Level 23 mmol/L (21-32) Anion Gap 15 (6-14) Blood Urea Nitrogen 25 mg/dL (8-26) Creatinine 1.3 mg/dL (0.7-1.3) Estimated GFR (Cockcroft-Gault) 67.0 BUN/Creatinine Ratio 19 (6-20) Glucose Level 309 mg/dL (70-99) Calcium Level 8.7 mg/dL (8.5-10.1) Total Bilirubin 0.6 mg/dL (0.2-1.0) Aspartate Amino Transf (AST/SGOT) 44 U/L (15-37) Alanine Aminotransferase (ALT/SGPT) 44 U/L (16-63) Alkaline Phosphatase 104 U/L (46-116) Total Protein 5.3 g/dL (6.4-8.2) Albumin 2.1 g/dL (3.4-5.0) Albumin/Globulin Ratio 0.7 (1.0-1.7) Test 08/26/20 15:01 08/26/20 16:48 08/26/20 23:15 08/27/20 06:43 Glucose (Fingerstick) 326 mg/dL (70-99) 341 mg/dL (70-99) 237 mg/dL (70-99) White Blood Count 6.2 x10^3/uL (4.0-11.0) Red Blood Count 4.03 x10^6/uL (4.30-5.70) Hemoglobin 10.1 g/dL (13.0-17.5) Hematocrit 30.9 % (39.0-53.0) Mean Corpuscular Volume 77 fL (79-100) Mean Corpuscular Hemoglobin 25 pg (25-35) Mean Corpuscular Hemoglobin Concent 33 g/dL (31-37) Red Cell Distribution Width 14.3 % (11.5-14.5) Platelet Count 170 x10^3/uL (140-400) Sodium Level 143 mmol/L (136-145) Potassium Level 4.1 mmol/L (3.5-5.1) Chloride Level 107 mmol/L (98-107) Carbon Dioxide Level 27 mmol/L (21-32) Anion Gap 9 (6-14) Blood Urea Nitrogen 24 mg/dL (8-26) Creatinine 1.6 mg/dL (0.7-1.3) Estimated GFR (Cockcroft-Gault) 52.8 BUN/Creatinine Ratio 15 (6-20) Glucose Level 301 mg/dL (70-99) Calcium Level 8.0 mg/dL (8.5-10.1) Total Bilirubin 0.5 mg/dL (0.2-1.0) Aspartate Amino Transf (AST/SGOT) 26 U/L (15-37) Alanine Aminotransferase (ALT/SGPT) 34 U/L (16-63) Alkaline Phosphatase 86 U/L (46-116) Total Protein 4.8 g/dL (6.4-8.2) Albumin 1.8 g/dL (3.4-5.0) Albumin/Globulin Ratio 0.6 (1.0-1.7) Test 08/27/20 11:06 Glucose (Fingerstick) 262 mg/dL (70-99) Laboratory Tests Test 08/26/20 15:01 08/26/20 16:48 08/26/20 23:15 08/27/20 06:43 Glucose (Fingerstick) 326 mg/dL (70-99) 341 mg/dL (70-99) 237 mg/dL (70-99) White Blood Count 6.2 x10^3/uL (4.0-11.0) Red Blood Count 4.03 x10^6/uL (4.30-5.70) Hemoglobin 10.1 g/dL (13.0-17.5) Hematocrit 30.9 % (39.0-53.0) Mean Corpuscular Volume 77 fL (79-100) Mean Corpuscular Hemoglobin 25 pg (25-35) Mean Corpuscular Hemoglobin Concent 33 g/dL (31-37) Red Cell Distribution Width 14.3 % (11.5-14.5) Platelet Count 170 x10^3/uL (140-400) Sodium Level 143 mmol/L (136-145) Potassium Level 4.1 mmol/L (3.5-5.1) Chloride Level 107 mmol/L (98-107) Carbon Dioxide Level 27 mmol/L (21-32) Anion Gap 9 (6-14) Blood Urea Nitrogen 24 mg/dL (8-26) Creatinine 1.6 mg/dL (0.7-1.3) Estimated GFR (Cockcroft-Gault) 52.8 BUN/Creatinine Ratio 15 (6-20) Glucose Level 301 mg/dL (70-99) Calcium Level 8.0 mg/dL (8.5-10.1) Total Bilirubin 0.5 mg/dL (0.2-1.0) Aspartate Amino Transf (AST/SGOT) 26 U/L (15-37) Alanine Aminotransferase (ALT/SGPT) 34 U/L (16-63) Alkaline Phosphatase 86 U/L (46-116) Total Protein 4.8 g/dL (6.4-8.2) Albumin 1.8 g/dL (3.4-5.0) Albumin/Globulin Ratio 0.6 (1.0-1.7) Test 08/27/20 11:06 Glucose (Fingerstick) 262 mg/dL (70-99) Microbiology 08/25/20 Blood Culture - Preliminary, Resulted NO GROWTH AFTER 1 DAY 08/25/20 Urine Culture - Final, Complete Medications Current Medications Sodium Chloride (Normal Saline Flush) 3 ml PRN DAILY PRN IV AFTER MEDS AND BLOOD DRAWS; Start 08/25/20 at 05:00 Sodium Chloride 1,000 ml @ 100 mls/hr Q10H IV Last administered on 08/25/20at 05:26; Start 08/25/20 at 05:30; Stop 08/25/20 at 11:23; Status DC Acetaminophen (Tylenol) 650 mg PRN Q6HRS PRN PO MILD PAIN / TEMP > 100.3'F; Start 08/25/20 at 07:15 Aspirin (Ecotrin) 325 mg DAILYWBKFT PO Last administered on 08/27/20at 09:34; Start 08/25/20 at 08:00 Aspirin (Aspirin Rectal Supp) 300 mg PRN DAILY PRN MA IF UNABLE TO TAKE PO Last administered on 08/26/20at 11:46; Start 08/25/20 at 07:15 Iohexol (Omnipaque 350 Mg/ml) 75 ml 1X ONCE IV Last administered on 08/25/20at 10:30; Start 08/25/20 at 10:30; Stop 08/25/20 at 10:34; Status DC Acetaminophen (Tylenol Supp) 650 mg PRN Q6HRS PRN [place] MILD PAIN / TEMP > 100.3'F Last administered on 08/25/20at 16:26; Start 08/25/20 at 10:30; Stop 08/25/20 at 19:48; Status DC Dextrose (Dextrose 50%-Water Syringe) 12.5 gm PRN Q15MIN PRN IV SEE COMMENTS; Start 08/25/20 at 10:45; Stop 08/25/20 at 11:26; Status DC Potassium Chloride/Dextrose 1,000 ml @ 75 mls/hr [id number] IV Last administered on 08/27/20at 04:51; Start 08/25/20 at 11:30 Insulin Human Lispro (HumaLOG) 0-7 UNITS Q6H SQ Last administered on 08/26/20at 06:46; Start 08/25/20 at 11:30; Stop 08/26/20 at 09:18; Status DC Dextrose (Dextrose 50%-Water Syringe) 12.5 gm PRN Q15MIN PRN IV SEE COMMENTS; Start 08/25/20 at 11:30 Acetaminophen (Tylenol Supp) 650 mg PRN Q4HRS PRN [place] MILD PAIN / TEMP > 100.3'F Last administered on 08/27/20at 03:10; Start 08/25/20 at 20:00 Insulin Human Lispro (HumaLOG) 0-9 UNITS Q6H PRN SQ hyperglycemia Last administered on 08/27/20at 09:18; Start 08/26/20 at 09:15 Dextrose (Dextrose 50%-Water Syringe) 12.5 gm PRN Q15MIN PRN IV SEE COMMENTS; Start 08/26/20 at 09:15 Active Scripts Active Reported Lipitor (Atorvastatin Calcium) 10 Mg Tablet 1 Tab PO DAILY Flomax (Tamsulosin Hcl) 0.4 Mg Cap.er.24h 1 Cap PO DAILY Ferrous Sulfate 325 Mg Tablet 1 Tab PO BID Omeprazole 40 Mg Capsule.dr 1 Cap PO DAILY Novolin N (Nph, Human Insulin Isophane) 100 Unit/1 Ml Vial 20 Unit SQ BIDACBD Lisinopril 10 Mg Tablet 1 Tab PO DAILY Vitals/I & O Vital Sign - Last 24 Hours 08/26/20 08/26/20 08/26/20 08/26/20 15:00 19:45 20:02 23:19 Temp 99.8 100.1 99.1 99.8 100.1 99.1 Pulse 96 96 86 Resp B/P (MAP) 175/80 (111) 168/82 (110) 168/76 (106) Pulse Ox 99 99 100 O2 Delivery Room Air Room Air Room Air Room Air 08/27/20 08/27/20 08/27/20 08/27/20 03:17 07:00 08:00 10:55 Temp 99.6 98.6 98.0 99.6 98.6 98.0 Pulse 87 85 84 Resp B/P (MAP) 171/76 (107) 177/86 (116) 135/61 (85) Pulse Ox 99 98 98 O2 Delivery Room Air Room Air Room Air Room Air Intake and Output 08/26/20 08/26/20 08/27/20 15:00 23:00 07:00 Intake Total 0 ml 0 ml 0 ml Output Total 900 ml 400 ml Balance 0 ml -900 ml -400 ml Justicifation of Admission Dx: Justifications for Admission: Justification of Admission Dx: N/A ALYSHA CARROLL MD Aug 27, 2020 14:51
[2020-08-27 15:00] VITALS: BP 185/86
--- NOTE | 2020-08-27 15:50 | RAD ---
CT scan of the abdomen without contrast 08/27/2020 CLINICAL HISTORY: Elevated creatinine. TECHNIQUE: Unenhanced, contiguous, 5 mm axial sections were obtained through the abdomen. One or more of the following individualized dose reduction techniques were utilized for this study: 1. Automated exposure control. 2. Adjustment of the mA and/or kV according to patient size. 3. Use of iterative reconstruction technique. FINDINGS: Images through the lung bases demonstrate mild cardiomegaly. There are very small bilateral pleural effusions. Dependent subsegmental atelectasis is seen involving both lower lobes. The liver, spleen, pancreas, adrenal glands and kidneys are within normal limits. Atherosclerotic calcification abdominal aorta is seen. The abdominal aorta tapers normally. The gallb ladder is contracted. No free fluid or free air is seen within the abdomen. There is no evidence of b owel obstruction. Degenerative changes are seen involving lower thoracic and throughout the lumbar sp ine. IMPRESSION: No acute abnormality is seen. Electronically signed by: Sean Alvarez MD (08/27/2020 3:47 PM) [id number]
[2020-08-27 19:00] VITALS: BP 139/81
--- NOTE | 2020-08-27 19:43 | NUR ---
patient was transferred to room 504 at this time. all patient belongings were transferred with the patient. This RN called report to RACHEL Rodriguez prior to patient transfer.
[2020-08-27] MEDS ORDERED: DEXTROSE 50% 25 GM / 50ML DISP.SYRIN. IV PRN (20:15)
[2020-08-27] MEDS: ATORVASTATIN CALCIUM 10 MG TABLET. PO SCH (22:20)
[2020-08-27] MEDS: amLODIPine BESYLATE 10 MG TABLET PO SCH (22:21)
[2020-08-27] MEDS: INSULIN LISPRO 300 UNITS/3 ML VIAL. SQ SCH (22:24)
[2020-08-27] MEDS: INSULIN GLARGINE SYRINGE. SQ SCH (22:25)
[2020-08-27 23:00] VITALS: BP 126/85
[2020-08-28 02:51] VITALS: BP 137/68
[2020-08-28] MEDS: POTASSIUM CL 20MEQ IN D5W 1,000 ML IV SCH (06:24)
[2020-08-28 07:00] VITALS: BP 153/82
--- NOTE | 2020-08-28 08:40 | PDOC ---
PROGRESS NOTES Date of Service DATE: 08/28/20 TIME: 08:37 Assessment Metabolic encephalopathy presenting with signs and symptoms of a right hemispheric stroke. A prolonged partial seizure could explain, no sign that he had that. A seizure unlikely to cause the fever Covid negative History of hypertension, diabetes, colon cancer Dr. Jones lists a diagnosis of prior seizure, patient denies Fever earlier in the admission Hypernatremia and hypokalemia, elevated creatinine, type 2 diabetes mellitus, gastroesophageal reflux disease, hypertension, microcytic hypochromic anemia,osteoarthritis, history of colon cancer. Speech has not seen yesterday or today, I went ahead and did my own bedside swallow and find no dysphagia Plan Awaiting echocardiogram Diabetic diet Rehabilitation modalities Aspirin Treat medical diseases including infection, Covid testing pending Speech to see Home as soon as tomorrow Subjective Says that he still feels a little "rough." Objective Vital Signs Date Time Temp Pulse Resp B/P (MAP) Pulse Ox O2 Delivery O2 Flow Rate FiO2 08/28/20 07:00 98.6 81 18 153/82 (105) 95 98.6 08/27/20 23:00 Room Air Intake and Output 08/28/20 06:59 Intake Total 780 ml Output Total 1350 ml Balance -570 ml Intake Oral 780 ml Output Urine Total 1350 ml # Bowel Movements 3 PHYSICAL EXAM Alert. Oriented to place and person. PERRL. EOMI. CN: no focal findings. Muscle tone: normal. Muscle strength: 4/5 DTR: 2+ Plantar reflex: Flexor Gait: not examined in bed. Sensory exam: no abnormal findings. Review of Relevant I have reviewed the following items danielle (where applicable) has been applied. Labs Laboratory Tests Test 08/26/20 15:01 08/26/20 16:48 08/26/20 23:15 08/27/20 06:43 Glucose (Fingerstick) 326 mg/dL (70-99) 341 mg/dL (70-99) 237 mg/dL (70-99) White Blood Count 6.2 x10^3/uL (4.0-11.0) Red Blood Count 4.03 x10^6/uL (4.30-5.70) Hemoglobin 10.1 g/dL (13.0-17.5) Hematocrit 30.9 % (39.0-53.0) Mean Corpuscular Volume 77 fL (79-100) Mean Corpuscular Hemoglobin 25 pg (25-35) Mean Corpuscular Hemoglobin Concent 33 g/dL (31-37) Red Cell Distribution Width 14.3 % (11.5-14.5) Platelet Count 170 x10^3/uL (140-400) Sodium Level 143 mmol/L (136-145) Potassium Level 4.1 mmol/L (3.5-5.1) Chloride Level 107 mmol/L (98-107) Carbon Dioxide Level 27 mmol/L (21-32) Anion Gap 9 (6-14) Blood Urea Nitrogen 24 mg/dL (8-26) Creatinine 1.6 mg/dL (0.7-1.3) Estimated GFR (Cockcroft-Gault) 52.8 BUN/Creatinine Ratio 15 (6-20) Glucose Level 301 mg/dL (70-99) Calcium Level 8.0 mg/dL (8.5-10.1) Total Bilirubin 0.5 mg/dL (0.2-1.0) Aspartate Amino Transf (AST/SGOT) 26 U/L (15-37) Alanine Aminotransferase (ALT/SGPT) 34 U/L (16-63) Alkaline Phosphatase 86 U/L (46-116) Total Protein 4.8 g/dL (6.4-8.2) Albumin 1.8 g/dL (3.4-5.0) Albumin/Globulin Ratio 0.6 (1.0-1.7) Test 08/27/20 11:06 08/27/20 17:04 08/27/20 21:00 08/28/20 07:21 Glucose (Fingerstick) 262 mg/dL (70-99) 192 mg/dL (70-99) 251 mg/dL (70-99) 451 mg/dL (70-99) Laboratory Tests Test 08/27/20 11:06 08/27/20 17:04 08/27/20 21:00 08/28/20 07:21 Glucose (Fingerstick) 262 mg/dL (70-99) 192 mg/dL (70-99) 251 mg/dL (70-99) 451 mg/dL (70-99) Microbiology 08/25/20 Blood Culture - Preliminary, Resulted NO GROWTH AFTER 2 DAYS 08/25/20 Urine Culture - Final, Complete Medications Current Medications Sodium Chloride (Normal Saline Flush) 3 ml PRN DAILY PRN IV AFTER MEDS AND BLOOD DRAWS; Start 08/25/20 at 05:00 Sodium Chloride 1,000 ml @ 100 mls/hr Q10H IV Last administered on 08/25/20at 05:26; Start 08/25/20 at 05:30; Stop 08/25/20 at 11:23; Status DC Acetaminophen (Tylenol) 650 mg PRN Q6HRS PRN PO MILD PAIN / TEMP > 100.3'F; Start 08/25/20 at 07:15 Aspirin (Ecotrin) 325 mg DAILYWBKFT PO Last administered on 08/27/20at 09:34; Start 08/25/20 at 08:00 Aspirin (Aspirin Rectal Supp) 300 mg PRN DAILY PRN [place] IF UNABLE TO TAKE PO Last administered on 08/26/20at 11:46; Start 08/25/20 at 07:15 Iohexol (Omnipaque 350 Mg/ml) 75 ml 1X ONCE IV Last administered on 08/25/20at 10:30; Start 08/25/20 at 10:30; Stop 08/25/20 at 10:34; Status DC Acetaminophen (Tylenol Supp) 650 mg PRN Q6HRS PRN [place] MILD PAIN / TEMP > 100.3'F Last administered on 08/25/20at 16:26; Start 08/25/20 at 10:30; Stop 08/25/20 at 19:48; Status DC Dextrose (Dextrose 50%-Water Syringe) 12.5 gm PRN Q15MIN PRN IV SEE COMMENTS; Start 08/25/20 at 10:45; Stop 08/25/20 at 11:26; Status DC Potassium Chloride/Dextrose 1,000 ml @ 75 mls/hr [id number] IV Last administered on 08/28/20at 06:24; Start 08/25/20 at 11:30; Stop 08/28/20 at 08:11; Status DC Insulin Human Lispro (HumaLOG) 0-7 UNITS Q6H SQ Last administered on 08/26/20at 06:46; Start 08/25/20 at 11:30; Stop 08/26/20 at 09:18; Status DC Dextrose (Dextrose 50%-Water Syringe) 12.5 gm PRN Q15MIN PRN IV SEE COMMENTS; Start 08/25/20 at 11:30; Stop 08/27/20 at 20:17; Status DC Acetaminophen (Tylenol Supp) 650 mg PRN Q4HRS PRN [place] MILD PAIN / TEMP > 100.3'F Last administered on 08/27/20at 03:10; Start 08/25/20 at 20:00 Insulin Human Lispro (HumaLOG) 0-9 UNITS Q6H PRN SQ hyperglycemia Last administered on 08/27/20at 17:44; Start 08/26/20 at 09:15; Stop 08/27/20 at 20:17; Status DC Dextrose (Dextrose 50%-Water Syringe) 12.5 gm PRN Q15MIN PRN IV SEE COMMENTS; Start 08/26/20 at 09:15; Stop 08/27/20 at 20:17; Status DC Insulin Glargine (Lantus Syringe) 20 unit QHS SQ Last administered on 08/27/20at 22:25; Start 08/27/20 at 21:00 Amlodipine Besylate (Norvasc) 10 mg DAILY PO Last administered on 08/27/20at 22:21; Start 08/27/20 at 21:00 Atorvastatin Calcium (Lipitor) 10 mg QHS PO Last administered on 08/27/20at 22:20; Start 08/27/20 at 21:00 Tamsulosin HCl (Flomax) 0.4 mg DAILY PO ; Start 08/28/20 at 09:00 Insulin Human Lispro (HumaLOG) 0-7 UNITS QIDACHS SQ Last administered on 08/27/20at 22:24; Start 08/27/20 at 21:00 Dextrose (Dextrose 50%-Water Syringe) 12.5 gm PRN Q15MIN PRN IV SEE COMMENTS; Start 08/27/20 at 20:15 Insulin Human Lispro (HumaLOG) 10 units TIDAC SQ ; Start 08/28/20 at 08:30 Active Scripts Active Reported Lipitor (Atorvastatin Calcium) 10 Mg Tablet 1 Tab PO DAILY Flomax (Tamsulosin Hcl) 0.4 Mg Cap.er.24h 1 Cap PO DAILY Ferrous Sulfate 325 Mg Tablet 1 Tab PO BID Omeprazole 40 Mg Capsule.dr 1 Cap PO DAILY Novolin N (Nph, Human Insulin Isophane) 100 Unit/1 Ml Vial 20 Unit SQ BIDACBD Lisinopril 10 Mg Tablet 1 Tab PO DAILY Vitals/I & O Vital Sign - Last 24 Hours 08/27/20 08/27/20 08/27/20 08/27/20 10:55 15:00 19:00 20:00 Temp 98.0 97.8 99.8 98.0 97.8 99.8 Pulse 84 80 82 Resp 18 B/P (MAP) 135/61 (85) 185/86 (119) 139/81 (100) Pulse Ox 98 97 98 O2 Delivery Room Air Room Air Room Air Room Air 08/27/20 08/27/20 08/28/20 08/28/20 22:21 23:00 02:51 07:00 Temp 98.9 98.6 98.6 98.9 98.6 98.6 Pulse 85 78 77 81 Resp 18 B/P (MAP) 126/85 (99) 137/68 (91) 153/82 (105) Pulse Ox 94 96 95 O2 Delivery Room Air Intake and Output 08/27/20 08/27/20 08/28/20 14:59 22:59 06:59 Intake Total 0 ml 540 ml 240 ml Output Total 400 ml 950 ml Balance 0 ml 140 ml -710 ml Justicifation of Admission Dx: Justifications for Admission: Justification of Admission Dx: N/A ALYSHA CARROLL MD Aug 28, 2020 08:40
[2020-08-28 09:23] LABS: CALCIUM 7.9 mg/dL (8.5-10.1); CREATININE 1.2 mg/dL (0.7-1.3); GFR 73.5; POTASSIUM 4.2 mmol/L (3.5-5.1)
[2020-08-28] MEDS: ASPIRIN ENTERIC COATED 325 MG TABLET.DR. PO SCH (09:33)
[2020-08-28] MEDS: amLODIPine BESYLATE 10 MG TABLET PO SCH (09:33)
[2020-08-28] MEDS: TAMSULOSIN 0.4 MG CAP.ER.24H. PO SCH (09:33)
[2020-08-28] MEDS: INSULIN LISPRO 300 UNITS/3 ML VIAL. SQ SCH ×7 (09:43→21:00)
--- NOTE | 2020-08-28 10:18 | NUR ---
SW following. Discussed with RN, pt from home alone, room air, ada diet, COVID-19 negative. PT/OT recommending SNU. SW met with pt (no isolation precautions at the time), pt does not want to go to SNU at this time, and does not feel he needs home health as he has a lot of family support, including a family member who is an RN and one who is a PT. SW informed pt if he changes his mind he can call his PCP and get home health that way. Pt verbalized understanding. SW notified Dr. Jones. SW will continue to follow.
[2020-08-28 11:00] VITALS: BP 144/66
[2020-08-28 15:00] VITALS: BP 117/61
[2020-08-28 19:00] VITALS: BP 99/60
[2020-08-28] MEDS: ATORVASTATIN CALCIUM 10 MG TABLET. PO SCH (20:59)
[2020-08-28] MEDS: INSULIN GLARGINE SYRINGE. SQ SCH (21:04)
[2020-08-28 22:36] VITALS: BP 101/64
[2020-08-29 03:00] VITALS: BP 164/92
[2020-08-29 07:00] VITALS: BP 145/86
--- NOTE | 2020-08-29 08:59 | PDOC ---
PROGRESS NOTES Date of Service DATE: 08/29/20 TIME: 08:56 Assessment Metabolic encephalopathy presenting with signs and symptoms of a right hemispheric stroke. A prolonged partial seizure could explain, no sign that he had that. A seizure unlikely to cause the fever Covid negative History of hypertension, diabetes, colon cancer Dr. Jones lists a diagnosis of prior seizure, patient denies Fever earlier in the admission Hypernatremia and hypokalemia, elevated creatinine, type 2 diabetes mellitus, gastroesophageal reflux disease, hypertension, microcytic hypochromic anemia,osteoarthritis, history of colon cancer. Physical therapy recommending [facility] unit Plan Discussed with brother, patient also, agreeable to [facility] unit stay Okay to transfer to [facility] today Rehabilitation modalities Aspirin Treat medical diseases including infection Still waiting on echocardiogram Subjective No complaints Objective Vital Signs Date Time Temp Pulse Resp B/P (MAP) Pulse Ox O2 Delivery O2 Flow Rate FiO2 08/29/20 07:00 99.0 81 18 145/86 (105) 95 Room Air 99.0 Intake and Output 08/29/20 07:00 Intake Total 660 ml Output Total 1250 ml Balance -590 ml Intake Oral 660 ml Output Urine Total 1250 ml # Voids 1 PHYSICAL EXAM Alert. Oriented to place and person. PERRL. EOMI. CN: no focal findings. Muscle tone: normal. Muscle strength: 4/5 DTR: 2+ Plantar reflex: Flexor Gait: not examined in bed. Sensory exam: no abnormal findings. Review of Relevant I have reviewed the following items danielle (where applicable) has been applied. Labs Laboratory Tests Test 08/27/20 11:06 08/27/20 17:04 08/27/20 21:00 08/28/20 07:21 Glucose (Fingerstick) 262 mg/dL (70-99) 192 mg/dL (70-99) 251 mg/dL (70-99) 451 mg/dL (70-99) Test 08/28/20 07:44 08/28/20 11:37 08/28/20 19:56 08/29/20 07:54 Sodium Level 137 mmol/L (136-145) Potassium Level 4.2 mmol/L (3.5-5.1) Chloride Level 103 mmol/L (98-107) Carbon Dioxide Level 28 mmol/L (21-32) Anion Gap 6 (6-14) Blood Urea Nitrogen 23 mg/dL (8-26) Creatinine 1.2 mg/dL (0.7-1.3) Estimated GFR (Cockcroft-Gault) 73.5 Glucose Level 468 mg/dL (70-99) Calcium Level 7.9 mg/dL (8.5-10.1) Glucose (Fingerstick) 272 mg/dL (70-99) 129 mg/dL (70-99) 339 mg/dL (70-99) Laboratory Tests Test 08/28/20 11:37 08/28/20 19:56 08/29/20 07:54 Glucose (Fingerstick) 272 mg/dL (70-99) 129 mg/dL (70-99) 339 mg/dL (70-99) Microbiology 08/25/20 Blood Culture - Preliminary, Resulted NO GROWTH AFTER 3 DAYS 08/25/20 Urine Culture - Final, Complete Medications Current Medications Sodium Chloride (Normal Saline Flush) 3 ml PRN DAILY PRN IV AFTER MEDS AND BLOOD DRAWS; Start 08/25/20 at 05:00 Sodium Chloride 1,000 ml @ 100 mls/hr Q10H IV Last administered on 08/25/20at 05:26; Start 08/25/20 at 05:30; Stop 08/25/20 at 11:23; Status DC Acetaminophen (Tylenol) 650 mg PRN Q6HRS PRN PO MILD PAIN / TEMP > 100.3'F Last administered on 08/28/20at 12:33; Start 08/25/20 at 07:15 Aspirin (Ecotrin) 325 mg DAILYWBKFT PO Last administered on 08/28/20at 09:33; Start 08/25/20 at 08:00 Aspirin (Aspirin Rectal Supp) 300 mg PRN DAILY PRN AR IF UNABLE TO TAKE PO Last administered on 08/26/20at 11:46; Start 08/25/20 at 07:15 Iohexol (Omnipaque 350 Mg/ml) 75 ml 1X ONCE IV Last administered on 08/25/20at 10:30; Start 08/25/20 at 10:30; Stop 08/25/20 at 10:34; Status DC Acetaminophen (Tylenol Supp) 650 mg PRN Q6HRS PRN AR MILD PAIN / TEMP > 100.3'F Last administered on 08/25/20at 16:26; Start 08/25/20 at 10:30; Stop 08/25/20 at 19:48; Status DC Dextrose (Dextrose 50%-Water Syringe) 12.5 gm PRN Q15MIN PRN IV SEE COMMENTS; Start 08/25/20 at 10:45; Stop 08/25/20 at 11:26; Status DC Potassium Chloride/Dextrose 1,000 ml @ 75 mls/hr [id number] IV Last administered on 08/28/20at 06:24; Start 08/25/20 at 11:30; Stop 08/28/20 at 08:11; Status DC Insulin Human Lispro (HumaLOG) 0-7 UNITS Q6H SQ Last administered on 08/26/20at 06:46; Start 08/25/20 at 11:30; Stop 08/26/20 at 09:18; Status DC Dextrose (Dextrose 50%-Water Syringe) 12.5 gm PRN Q15MIN PRN IV SEE COMMENTS; Start 08/25/20 at 11:30; Stop 08/27/20 at 20:17; Status DC Acetaminophen (Tylenol Supp) 650 mg PRN Q4HRS PRN AR MILD PAIN / TEMP > 100.3'F Last administered on 08/27/20at 03:10; Start 08/25/20 at 20:00 Insulin Human Lispro (HumaLOG) 0-9 UNITS Q6H PRN SQ hyperglycemia Last administered on 08/27/20at 17:44; Start 08/26/20 at 09:15; Stop 08/27/20 at 20:17; Status DC Dextrose (Dextrose 50%-Water Syringe) 12.5 gm PRN Q15MIN PRN IV SEE COMMENTS; Start 08/26/20 at 09:15; Stop 08/27/20 at 20:17; Status DC Insulin Glargine (Lantus Syringe) 20 unit QHS SQ Last administered on 08/28/20at 21:04; Start 08/27/20 at 21:00 Amlodipine Besylate (Norvasc) 10 mg DAILY PO Last administered on 08/28/20at 09:33; Start 08/27/20 at 21:00 Atorvastatin Calcium (Lipitor) 10 mg QHS PO Last administered on 08/28/20at 20:59; Start 08/27/20 at 21:00 Tamsulosin HCl (Flomax) 0.4 mg DAILY PO Last administered on 08/28/20at 09:33; Start 08/28/20 at 09:00 Insulin Human Lispro (HumaLOG) 0-7 UNITS QIDACHS SQ Last administered on 08/28/20at 12:31; Start 08/27/20 at 21:00 Dextrose (Dextrose 50%-Water Syringe) 12.5 gm PRN Q15MIN PRN IV SEE COMMENTS; Start 08/27/20 at 20:15 Insulin Human Lispro (HumaLOG) 10 units TIDAC SQ Last administered on 08/28/20at 17:20; Start 08/28/20 at 08:30 Active Scripts Active Reported Lipitor (Atorvastatin Calcium) 10 Mg Tablet 1 Tab PO DAILY Flomax (Tamsulosin Hcl) 0.4 Mg Cap.er.24h 1 Cap PO DAILY Ferrous Sulfate 325 Mg Tablet 1 Tab PO BID Omeprazole 40 Mg Capsule.dr 1 Cap PO DAILY Novolin N (Nph, Human Insulin Isophane) 100 Unit/1 Ml Vial 20 Unit SQ BIDACBD Lisinopril 10 Mg Tablet 1 Tab PO DAILY Vitals/I & O Vital Sign - Last 24 Hours 08/28/20 08/28/20 08/28/20 08/28/20 09:33 11:00 15:00 19:00 Temp 99.0 99.0 97.8 99.0 99.0 97.8 Pulse 81 77 86 85 Resp 18 18 18 B/P (MAP) 153/82 144/66 (92) 117/61 (79) 99/60 (73) Pulse Ox 96 97 94 O2 Delivery Room Air Room Air Room Air 08/28/20 08/28/20 08/29/20 08/29/20 20:00 22:36 03:00 07:00 Temp 97.8 97.8 99.0 97.8 97.8 99.0 Pulse 85 84 81 Resp 18 18 18 B/P (MAP) 101/64 (76) 164/92 (116) 145/86 (105) Pulse Ox 94 93 95 O2 Delivery Room Air Room Air Room Air Room Air Intake and Output0 08/28/20 08/28/20 08/29/20 15:00 23:00 07:00 Intake Total 120 ml 540 ml Output Total 850 ml 400 ml Balance -730 ml 540 ml -400 ml Justicifation of Admission Dx: Justifications for Admission: Justification of Admission Dx: N/A ALSYHA CARROLL MD Aug 29, 2020 08:59
[2020-08-29] MEDS: TAMSULOSIN 0.4 MG CAP.ER.24H. PO SCH (09:05)
[2020-08-29] MEDS: amLODIPine BESYLATE 10 MG TABLET PO SCH (09:05)
[2020-08-29] MEDS: ASPIRIN ENTERIC COATED 325 MG TABLET.DR. PO SCH (09:05)
[2020-08-29] MEDS: INSULIN LISPRO 300 UNITS/3 ML VIAL. SQ SCH ×2 (09:13→09:14)
--- NOTE | 2020-08-29 09:29 | NUR ---
IMELDA following. Discussed with RN, pt from home alone, room air, ada diet. Pt refusing SNU and home health yesterday (08/28/2020), but Dr. Pardo able to convince pt to go to SNU. IMELDA met with pt, pt still a little on the fence and could not make a decision about where to go and requested IMELDA speak with his brother, Alex ([phone]). IMELDA contacted Alex, he advised he is at work and needs SW to call him back after 1130 today. IMELDA agreed and stated the reason for the call for was rehab placement. RN notified of progress, if RN sees Dr. Jones, will get discharge orders entered so when pt and brother make a decision on facility, everything can be faxed and pt hopefully transfer today. IMELDA will continue to follow. Addendum: 08/29/20 at 1038 by TIMI SEGURA RN contacted IMELDA to advise pt had decided on [facility]. IMELDA faxed referral to [facility], awaiting acceptance decision. IMELDA will continue to follow. Addendum: 08/29/20 at 1158 by TIMI SEGURA Discharge orders faxed to [facility]. Pt accepted at [facility]. Transportation arranged for [address] [facility] transport. RN and family notified.
--- NOTE | 2020-08-29 10:41 | SNU/HH DC ---
DISCHARGE ORDERS DISCHARGE INFORMATION: DISCHARGE DATE: Aug 29, 2020 FINAL DIAGNOSIS metabolic encephalopathy hypernatremia dm hypertension CONDITION ON DISCHARGE: Stable CODE STATUS: Code Status: Full PRISON: SNF STAY <30 DAYS: Yes POST DISCHARGE ORDERS: ACTIVITY ORDERS: Resume previous activity DIET AFTER DISCHARGE: ADA TREATMENT/EQUIPMENT ORDERS: Physical Therapy For: Evalulation/Treatment Occupational Therapy For: Evaluation/Treatment DISCHARGE MEDICATIONS: Home Meds Reported Medications Atorvastatin Calcium (LIPITOR) 10 Mg Tablet, 1 TAB PO DAILY for hld, #30 TAB 5 Refills 08/25/20 Tamsulosin Hcl (FLOMAX) 0.4 Mg Cap.er.24h, 1 CAP PO DAILY for bph?, #30 CAP 11 Refills 08/25/20 Ferrous Sulfate (FERROUS SULFATE) 325 Mg Tablet, 1 TAB PO BID for supplement, #60 TAB 3 Refills 08/25/20 Omeprazole (OMEPRAZOLE) 40 Mg Capsule.dr, 1 CAP PO DAILY for gerd, #30 CAP 3 Refills 08/25/20 Nph, Human Insulin Isophane (NOVOLIN N) 100 Unit/1 Ml Vial, 20 UNIT SQ BIDACBD for DM, VIAL 08/25/20 Lisinopril (LISINOPRIL) 10 Mg Tablet, 1 TAB PO DAILY for htn, #30 TAB 5 Refills 08/25/20 CRISTINA REYNA MD Aug 29, 2020 10:41
[2020-08-29 11:00] VITALS: BP 136/77
--- NOTE | 2020-08-29 11:13 | DS ---
DATE OF DISCHARGE: 08/29/2020 HOSPITAL COURSE: The patient is a 65-year-old -Italian male patient who presented with altered mental status with sign and symptoms of right hemispheric stroke, a prolonged partial seizure could explain this; however, no sign that he had that. He was extensively investigated. Had had a CT scan of the head and CT angio of the neck and head as well as MRI, which were all negative. He has also hyponatremia with serum sodium was high at 148 that has improved down to 137. His blood sugar was suboptimally controlled and I did start him on NovoLog and Lantus insulin. His COVID-19 was negative. The patient's level of consciousness has improved dramatically and he is now eating and drinking. He continues to be weak, was evaluated by physical therapy yesterday and they recommended intermediate facility. He initially refused now he agreed to go to [facility] and will be discharged there to continue the process of rehabilitation. PHYSICAL EXAMINATION: GENERAL: When I saw him this morning, he looked well and was clearly in no apparent respiratory distress. No pallor, jaundice, cyanosis or thyromegaly. No jugular venous distention. No lower limb edema. VITAL SIGNS: Her heart rate was 81, blood pressure 145/86, temperature was 99, respiratory rate was 18 and oxygen saturation was 95%. HEAD, EYES, EARS, NOSE AND THROAT: Showed normocephalic, atraumatic. NECK: Supple. HEART: Showed normal first and second heart sounds. No gallop or murmur. CHEST: Clear to auscultation. No crepitation or rhonchi. ABDOMEN: Slightly distended, soft, nontender. NEUROLOGIC: He was definitely awake, alert, responding appropriately. All his cranial nerves are intact. He moves extremities without difficulty. He was seen by the Speech therapist and he is now on a regular diet with thin liquid. His intake and output were incompletely recorded. His intake was 780, output was 1350. LABORATORY DATA: His most recent lab work showed a white cell count 6200, hemoglobin 10, hematocrit 30, MCV 77 and platelet count of 170,000. His chemistry showed a serum sodium 137, potassium 4.2, chloride 103, bicarbonate 28, anion gap of 6, BUN 23, creatinine 1.2, estimated GFR was 73 mL per minute. His glucose was 268, calcium was 7.9. His total protein was 4.8, albumin was 1.8. DISCHARGE MEDICATIONS: The patient was discharged to [facility] to continue on tamsulosin 0.4 mg at bedtime, Humalog insulin 10 units before meals, together with sliding scale, atorvastatin 10 mg at bedtime, amlodipine besylate 10 mg once a day, Lantus insulin 20 units at bedtime, Tylenol 650 mg every 4 hours as needed, aspirin 325 mg once a day. FINAL DISCHARGE DIAGNOSES: 1. Metabolic encephalopathy, presenting with signs and symptoms of right hemispheric stroke. 2. Hypertension. 3. Type 2 diabetes. 4. History of colon cancer. 5. Hypernatremia and hypokalemia. 5. Nvydh-[id number] kidney injury, gastroesophageal reflux disease as well as microcytic hypochromic anemia. CRISTINA REYNA MD DR: YUN/yaima JOB#: [id number] / [id number]
--- NOTE | 2020-08-29 12:38 | CARD ---
MR#: [id number] Account#: Date of Study: 08/29/2020 Ordering Physician: Jeff: Lizett Damon RDCS APPROVED REPORT EXAM: Two-dimensional and M-mode echocardiogram with Doppler and color Doppler. Other Information Quality : GoodHR: 79bpm Rhythm : NSR INDICATION CVA/TIA Echo Enhancing Agent Indication: Rule Out Septal Defect Agent/Amount Used: Agitated Saline 7mL RISK FACTORS Hypertension 2D DIMENSIONS RVDd3.3 (2.9-3.5cm)Left Atrium(2D)3.3 (1.6-4.0cm) IVSd1.9 (0.7-1.1cm)Aortic Root(2D)3.0 (2.0-3.7cm) LVDd3.8 (3.9-5.9cm)LVOT Diameter2.1 (1.8-2.4cm) PWd1.6 (0.7-1.1cm)LVDs2.4 (2.5-4.0cm) FS (%) 38.6 %SV44.3 ml LVEF(%)69.6 (>50%) Aortic Valve AoV Peak Michael.130.5cm/sAoV VTI26.3cm AO Peak GR.6.8mmHgLVOT Peak Michael.100.2cm/s AO Mean GR.4mmHgAVA (VMAX)2.70cm2 Mitral Valve MV E Cfifjfvq07.4cm/sMV DECEL [id number] MV A Hucbiwiy83.4cm/sE/A Ratio0.8 Pulmonary Valve PV Peak Phqjoksr25.9cm/s Tricuspid Valve TR P. Lqpqgdsg257eu/sTR Peak Gr.19mmHg Pulmonary Vein S1 Fmcrfhsl07.0cm/sD2 Meqxmuoo49.2cm/s PVa [id number] LEFT VENTRICLE The left ventricle is normal size. There is moderate to severe concentric left ventricular hypertroph y. The left ventricular systolic function is normal and the ejection fraction is within normal range. Estimated ejection fraction 60-65%. There is normal LV segmental wall motion. Transmitral Doppler fl ow pattern is Grade I-abnormal relaxation pattern. RIGHT VENTRICLE The right ventricle is normal size. There is normal right ventricular wall thickness. The right ventr icular systolic function is normal. ATRIA The left atrium size is normal. The right atrium size is normal. The interatrial septum is intact wit h no evidence for an atrial septal defect or patent foramen ovale as noted on 2-D or Doppler imaging. AORTIC VALVE The aortic valve is normal in structure and function. Doppler and Color Flow revealed no significant aortic regurgitation. There is no significant aortic valvular stenosis. MITRAL VALVE The mitral valve is normal in structure and function. There is no evidence of mitral valve prolapse. There is no mitral valve stenosis. Doppler and Color-flow revealed trace mitral regurgitation. TRICUSPID VALVE The tricuspid valve is normal in structure and function. Doppler and Color Flow revealed trace tricus pid regurgitation. Estimated PAP 23 mmHg. There is no tricuspid valve stenosis. PULMONIC VALVE Doppler and Color Flow revealed no pulmonic valvular regurgitation. There is no pulmonic valvular keanu nosis. GREAT VESSELS The aortic root is normal in size. The ascending aorta is normal in size. The IVC is normal in size a nd collapses >50% with inspiration. PERICARDIAL EFFUSION There is no evidence of significant pericardial effusion. Critical Notification Critical Value: No <Conclusion> The left ventricular systolic function is normal and the ejection fraction is within normal range. E stimated ejection fraction 60-65%. There is moderate to severe concentric left ventricular hypertrophy. There is normal LV segmental wall motion. Signed by : Herb Staley, Electronically Approved : 08/29/2020 09:31:11
--- NOTE | 2020-08-29 13:12 | NUR ---
PATIENT DISCHARGED TO [facility]. REPORT GIVEN TO RACHEL DAMON. MEDS AND FOLLOW UP REVIEWED. PT STABLE UPON DC.
== END 2020-08-29 13:13 | DRG 70 ==
LOC: 2 SOUTH 01:52 → 5 NORTH 08-27 19:56
PROVIDERS: ADMIT Internal Medicine; ATTEND Internal Medicine
DX: G93.41 Metabolic encephalopathy (principal); E43 Unspecified severe protein-calorie malnutrition; E87.0 Hyperosmolality and hypernatremia; N17.9 Acute kidney failure, unspecified; E87.1 Hypo-osmolality and hyponatremia; D50.9 Iron deficiency anemia, unspecified; E11.22 Type 2 diabetes mellitus with diabetic chronic kidney disease; E86.0 Dehydration; E87.6 Hypokalemia; G40.909 Epilepsy, unspecified, not intractable, without status epilepticus; F10.10 Alcohol abuse, uncomplicated; I12.9 Hypertensive chronic kidney disease with stage 1 through stage 4 chronic kidney disease, or unspecified chronic kidney disease; K21.9 Gastro-esophageal reflux disease without esophagitis; M19.90 Unspecified osteoarthritis, unspecified site; N18.9 Chronic kidney disease, unspecified; Z20.828 Contact with and (suspected) exposure to other viral communicable diseases; Z68.25 Body mass index [BMI] 25.0-25.9, adult; Z85.038 Personal history of other malignant neoplasm of large intestine; Z86.73 Personal history of transient ischemic attack (TIA), and cerebral infarction without residual deficits
CPT/HCPCS: 36415; 70498; 70551; 71045; 74150; 80048; 80053; 80061; 82140; 82550; 82962; 85025; 85027; 87040; 87086; 87426; 93306; J1815; J3480; J7030; Q9967; U0003; 92610-GN; 97116-GP; 97530-GO; 97530-GP; 97535-GO; G0378